=== PATIENT | male | born 1940 | race Caucasian/White ===

== ENCOUNTER → 2017-10-31 | Outpatient (CLI) | payer MEDICARE ==
[~2017-10-31] MED LIST: ALLO100 PO; Cipro500 MG PO; Flagyl500 MG PO; LEVSOD100 PO; LISI5 PO; METF500C PO; Metformin HCl1000 MG PO; Oxycodone-Apap1 EAC3 PO; Paxil40 MG; Percocet 5-3251 EACH PO; SIMV40 PO; TAMS.4ER PO; Zofran Odt4 MG SL
[2017-10-31 14:53] LABS: BASOPHILS ABSOLUTE AUTO 0.02 K/mm3 (0.00-0.23); BASOPHILS PERCENT AUTO 0 % (0-2); EOSINOPHILS PERCENT AUTO 2 % (0-6); Hematocrit 43.1 % (37.0-53.0); Hemoglobin 15.1 g/dL (13.5-17.5); IMMATURE GRAN ABSOLUTE AUTO 0.02 K/mm3 (0.00-0.10); IMMATURE GRAN PERCENT AUTO 0 % (0-1); LYMPHOCYTES ABSOLUTE AUTO 1.98 K/mm3 (0.84-5.20); LYMPHOCYTES PERCENT AUTO 33 % (21-46); MONOCYTES ABSOLUTE AUTO 0.43 K/mm3 (0.16-1.47); MONOCYTES PERCENT AUTO 7 % (4-13); Mean Corpuscular HGB 33.5 pg (26.0-34.0); Mean Corpuscular Volume 96 fL (80-100); Mean Platelet Volume 9.5 fL (9.1-12.4); NEUTROPHILS ABSOLUTE AUTO 3.55 K/mm3 (1.96-9.15); NEUTROPHILS PERCENT AUTO 58 % (41-73); Platelet Count 325 K/mm3 (150-400); RDW Coefficient Variation 12.1 % (11.7-14.2); RDW Standard Deviation 42.1 fL (35.1-46.3); Red Blood Cell Count 4.51 M/mm3 (4.30-5.90)
[2017-10-31 14:58] LABS: Bun/Creatinine Ratio 16.8 (12.0-20.0); Calcium, Blood 9.5 mg/dL (8.5-10.1); Creatinine, Blood 1.43 mg/dL (0.60-1.20); Potassium, Blood 4.2 mmol/L (3.5-5.5)
== END ==
LOC: LAB SHORT 14:45 → LAB EV 14:45
PROVIDERS: Family Medicine
DX: J18.0 Bronchopneumonia, unspecified organism (principal)
CPT/HCPCS: 80048; 83880; 85025

== ENCOUNTER → 2018-06-04 | Outpatient (CLI) | payer MEDICARE, BC ==
[2018-06-04 15:45] LABS: BASOPHILS ABSOLUTE AUTO 0.07 K/mm3 (0.00-0.23); BASOPHILS PERCENT AUTO 1 % (0-2); EOSINOPHILS ABSOLUTE AUTO 0.29 K/mm3 (0.00-0.68); EOSINOPHILS PERCENT AUTO 3 % (0-6); Hemoglobin 12.7 g/dL (13.5-17.5); IMMATURE GRAN ABSOLUTE AUTO 0.03 K/mm3 (0.00-0.10); IMMATURE GRAN PERCENT AUTO 0 % (0-1); LYMPHOCYTES ABSOLUTE AUTO 1.83 K/mm3 (0.84-5.20); LYMPHOCYTES PERCENT AUTO 18 % (21-46); MONOCYTES ABSOLUTE AUTO 0.58 K/mm3 (0.16-1.47); MONOCYTES PERCENT AUTO 6 % (4-13); Mean Corpuscular HGB 34.3 pg (26.0-34.0); Mean Corpuscular HGB Conc 34.3 g/dL (31.5-36.5); Mean Corpuscular Volume 100 fL (80-100); Mean Platelet Volume 9.6 fL (9.1-12.4); NEUTROPHILS ABSOLUTE AUTO 7.31 K/mm3 (1.96-9.15); NEUTROPHILS PERCENT AUTO 72 % (41-73); Platelet Count 260 K/mm3 (150-400); RDW Coefficient Variation 13.1 % (11.7-14.2); RDW Standard Deviation 48.1 fL (35.1-46.3); White Blood Cell Count 10.11 K/mm3 (4.00-11.30)
[2018-06-04 15:53] LABS: Bun/Creatinine Ratio 22.3 (12.0-20.0); Calcium, Blood 9.3 mg/dL (8.5-10.1); Creatinine, Blood 1.48 mg/dL (0.60-1.20); Potassium, Blood 4.3 mmol/L (3.5-5.5)
== END ==
LOC: LAB SHORT 15:42 → LAB EV 15:42
PROVIDERS: Family Medicine
DX: R31.9 Hematuria, unspecified (principal)
CPT/HCPCS: 80048; 85025

== ENCOUNTER 2018-07-30 10:19 | Emergency (ER) | payer MEDICARE, BC ==
[~2018-07-30] VITALS: Ht 182.9 cm; Wt 95.2 kg
[2018-07-30] MEDS ORDERED: ALLO100 PO (11:10)
[2018-07-30] MEDS ORDERED: METF500C PO (11:10)
[2018-07-30] MEDS ORDERED: LISI5 PO (11:10)
[2018-07-30] MEDS ORDERED: Oxycodone-Apap1 EAC3 PO (11:11)
[2018-07-30] MEDS ORDERED: SIMV40 PO (11:11)
[2018-07-30] MEDS ORDERED: TAMS.4ER PO (11:11)
[2018-07-30] MEDS ORDERED: LEVSOD100 PO (11:11)
[2018-07-30] MEDS ORDERED: Paxil40 MG (11:11)
[2018-07-30] MEDS ORDERED: Metformin HCl1000 MG PO (11:11)
[2018-07-30 11:15] LABS: BASOPHILS ABSOLUTE AUTO 0.06 K/mm3 (0.00-0.23); BASOPHILS PERCENT AUTO 1 % (0-2); EOSINOPHILS ABSOLUTE AUTO 0.32 K/mm3 (0.00-0.68); EOSINOPHILS PERCENT AUTO 4 % (0-6); Hematocrit 41.3 % (37.0-53.0); Hemoglobin 13.6 g/dL (13.5-17.5); IMMATURE GRAN ABSOLUTE AUTO 0.02 K/mm3 (0.00-0.10); IMMATURE GRAN PERCENT AUTO 0 % (0-1); LYMPHOCYTES ABSOLUTE AUTO 1.51 K/mm3 (0.84-5.20); LYMPHOCYTES PERCENT AUTO 18 % (21-46); MONOCYTES ABSOLUTE AUTO 0.56 K/mm3 (0.16-1.47); MONOCYTES PERCENT AUTO 7 % (4-13); Mean Corpuscular HGB 33.6 pg (26.0-34.0); Mean Corpuscular HGB Conc 32.9 g/dL (31.5-36.5); Mean Corpuscular Volume 102 fL (80-100); Mean Platelet Volume 9.2 fL (9.1-12.4); NEUTROPHILS ABSOLUTE AUTO 5.97 K/mm3 (1.96-9.15); NEUTROPHILS PERCENT AUTO 71 % (41-73); Platelet Count 320 K/mm3 (150-400); RDW Coefficient Variation 12.4 % (11.7-14.2); RDW Standard Deviation 46.8 fL (35.1-46.3); Red Blood Cell Count 4.05 M/mm3 (4.30-5.90); White Blood Cell Count 8.44 K/mm3 (4.00-11.30)
[2018-07-30 11:27] LABS: Alanine Aminotransfer (ALT/SGP 19 U/L (12-78); Albumin, Blood 3.9 g/dL (3.4-5.0); Albumin/Globulin Ratio 0.8 (0.8-1.8); Alk Phos 63 U/L (50-136); Anion Gap 7 mmol/L (6-16); Aspartate Aminotrans (AST/SGOT 17 U/L (12-37); Bilirubin, Total 0.6 mg/dL (0.1-1.0); Blood Urea Nitrogen 21 mg/dL (8-24); Bun/Creatinine Ratio 19.3 (12.0-20.0); CO2, Blood 27 mmol/L (21-32); Calcium, Blood 9.2 mg/dL (8.5-10.1); Chloride, Blood 102 mmol/L (98-108); Creatinine, Blood 1.09 mg/dL (0.60-1.20); Globulin, Blood 4.8 g/dL (2.2-4.0); Glomerular Filtration Rate >60 (60-); Glucose, Blood 180 mg/dL (70-99); Potassium, Blood 4.4 mmol/L (3.5-5.5); Sodium, Blood 136 mmol/L (136-145); Total Protein, Blood 8.7 g/dL (6.4-8.2)
[2018-07-30] MEDS ORDERED: Cipro500 MG PO (13:29)
[2018-07-30] MEDS ORDERED: Percocet 5-3251 EACH PO (13:29)
[2018-07-30] MEDS ORDERED: Zofran Odt4 MG SL (13:29)
[2018-07-30] MEDS ORDERED: Flagyl500 MG PO (13:29)
== END 2018-07-30 14:00 | disposition home or self-care (01) ==
LOC: ER 10:19
PROVIDERS: Emergency Medicine
DX: K57.32 Diverticulitis of large intestine without perforation or abscess without bleeding (principal); E11.9 Type 2 diabetes mellitus without complications; I10 Essential (primary) hypertension; Z88.0 Allergy status to penicillin; Z79.899 Other long term (current) drug therapy; Z79.84 Long term (current) use of oral hypoglycemic drugs
CPT/HCPCS: 36415; 74176; 80053; 83690; 85025; 96361; 96374; 96375; 99284-25; J2405; J3010; J7030

== ENCOUNTER 2018-12-11 06:16 | Day surgery (SDC) | payer MEDICARE, BC ==
[~2018-12-11] VITALS: Ht 182.9 cm; Wt 95.0 kg
[~2018-12-11 06:16] MED LIST changes: +ASPI81CH PO; +METO25ER PO; +Zithromax250 MG PO
--- NOTE | 2018-12-11 11:06 | NUR ---
PT DRESSED, DC'D BY WC WITH DRIVING PT HOME, R RADIAL DRESSING AND R WRIST SPLINT IN PLACE, NO BLEED, IV DC'D TIP INTACT
== END 2018-12-11 11:31 | disposition home or self-care (01) ==
LOC: MHTC 06:16
DX: R93.1 Abnormal findings on diagnostic imaging of heart and coronary circulation (principal); R06.02 Shortness of breath; Z88.0 Allergy status to penicillin; Z88.5 Allergy status to narcotic agent
CPT/HCPCS: 93458; 99152; 99153; C1769; C1894; J1644; J2250; J3010; J7030; Q9967

== ENCOUNTER → 2019-03-12 | Outpatient (CLI) | payer MEDICARE, BC ==
[2019-03-12 12:21] LABS: BASOPHILS ABSOLUTE AUTO 0.05 K/mm3 (0.00-0.23); BASOPHILS PERCENT AUTO 1 % (0-2); EOSINOPHILS ABSOLUTE AUTO 0.43 K/mm3 (0.00-0.68); EOSINOPHILS PERCENT AUTO 5 % (0-6); Hemoglobin 11.9 g/dL (13.5-17.5); IMMATURE GRAN ABSOLUTE AUTO 0.03 K/mm3 (0.00-0.10); IMMATURE GRAN PERCENT AUTO 0 % (0-1); LYMPHOCYTES ABSOLUTE AUTO 1.17 K/mm3 (0.84-5.20); LYMPHOCYTES PERCENT AUTO 14 % (21-46); MONOCYTES ABSOLUTE AUTO 0.58 K/mm3 (0.16-1.47); MONOCYTES PERCENT AUTO 7 % (4-13); Mean Corpuscular HGB 33.2 pg (26.0-34.0); Mean Corpuscular HGB Conc 33.1 g/dL (31.5-36.5); Mean Corpuscular Volume 101 fL (80-100); Mean Platelet Volume 9.7 fL (9.1-12.4); NEUTROPHILS ABSOLUTE AUTO 6.02 K/mm3 (1.96-9.15); NEUTROPHILS PERCENT AUTO 73 % (41-73); Platelet Count 281 K/mm3 (150-400); RDW Coefficient Variation 13.7 % (11.7-14.2); Red Blood Cell Count 3.58 M/mm3 (4.30-5.90); White Blood Cell Count 8.28 K/mm3 (4.00-11.30)
[2019-03-12 12:33] LABS: Anion Gap 11 mmol/L (6-16); Blood Urea Nitrogen 27 mg/dL (8-24); Bun/Creatinine Ratio 22.1 (12.0-20.0); CO2, Blood 26 mmol/L (21-32); Calcium, Blood 9.5 mg/dL (8.5-10.1); Chloride, Blood 100 mmol/L (98-108); Creatinine, Blood 1.22 mg/dL (0.60-1.20); Glomerular Filtration Rate 57 (60-); Glucose, Blood 206 mg/dL (70-99); Potassium, Blood 4.3 mmol/L (3.5-5.5); Sodium, Blood 137 mmol/L (136-145)
[2019-03-12 12:38] LABS: Troponin I <0.017 ng/mL (0.000-0.040)
== END | disposition home or self-care (01) ==
LOC: LAB SHORT 12:16 → LAB EV 12:16
PROVIDERS: Family Medicine
DX: R07.9 Chest pain, unspecified (principal)
CPT/HCPCS: 80048; 84484; 85025

== ENCOUNTER 2019-03-31 07:18 | Inpatient (IN) | payer MEDICARE, BC ==
[~2019-03-31] VITALS: Ht 182.9 cm; Wt 95.6 kg
[~2019-03-31 07:18] MED LIST changes: +METO25 PO; -METO25ER PO
[2019-03-31 08:22] LABS: BASOPHILS ABSOLUTE AUTO 0.05 K/mm3 (0.00-0.23); BASOPHILS PERCENT AUTO 1 % (0-2); EOSINOPHILS ABSOLUTE AUTO 0.02 K/mm3 (0.00-0.68); EOSINOPHILS PERCENT AUTO 0 % (0-6); Hematocrit 38.1 % (37.0-53.0); IMMATURE GRAN ABSOLUTE AUTO 0.03 K/mm3 (0.00-0.10); IMMATURE GRAN PERCENT AUTO 0 % (0-1); LYMPHOCYTES ABSOLUTE AUTO 0.64 K/mm3 (0.84-5.20); LYMPHOCYTES PERCENT AUTO 6 % (21-46); MONOCYTES ABSOLUTE AUTO 0.53 K/mm3 (0.16-1.47); MONOCYTES PERCENT AUTO 5 % (4-13); Mean Corpuscular HGB 33.2 pg (26.0-34.0); Mean Corpuscular HGB Conc 31.5 g/dL (31.5-36.5); Mean Corpuscular Volume 106 fL (80-100); Mean Platelet Volume 10.1 fL (9.1-12.4); NEUTROPHILS ABSOLUTE AUTO 9.45 K/mm3 (1.96-9.15); NEUTROPHILS PERCENT AUTO 88 % (41-73); Platelet Count 243 K/mm3 (150-400); RDW Standard Deviation 54.6 fL (35.1-46.3); Red Blood Cell Count 3.61 M/mm3 (4.30-5.90); White Blood Cell Count 10.72 K/mm3 (4.00-11.30)
[2019-03-31 08:45] LABS: Alanine Aminotransfer (ALT/SGP 16 U/L (12-78); Albumin, Blood 3.9 g/dL (3.4-5.0); Albumin/Globulin Ratio 0.9 (0.8-1.8); Alk Phos 66 U/L (50-136); Anion Gap 6 mmol/L (6-16); Aspartate Aminotrans (AST/SGOT 25 U/L (12-37); Bilirubin, Total 0.4 mg/dL (0.1-1.0); Blood Urea Nitrogen 33 mg/dL (8-24); Bun/Creatinine Ratio 34.4 (12.0-20.0); CO2, Blood 26 mmol/L (21-32); Calcium, Blood 9.6 mg/dL (8.5-10.1); Chloride, Blood 107 mmol/L (98-108); Creatinine, Blood 0.96 mg/dL (0.60-1.20); Globulin, Blood 4.3 g/dL (2.2-4.0); Glomerular Filtration Rate >60 (60-); Glucose, Blood 206 mg/dL (70-99); Potassium, Blood 4.6 mmol/L (3.5-5.5); Sodium, Blood 139 mmol/L (136-145); Total Protein, Blood 8.2 g/dL (6.4-8.2)
[2019-03-31] MEDS ORDERED: Paxil40 MG PO (09:25)
--- NOTE | 2019-03-31 12:00 | NUR ---
DR. GREEN ANS SERVICE CONSULTED. DR. ROSALES ANS SERVICE CONSULTED.
[2019-03-31] MEDS ORDERED: MELATONIN10 MG PO (12:32)
--- NOTE | 2019-03-31 14:44 | NUR ---
SURGICAL CONSULT DR. GREEN CONSULTED ON PT. HE VERBALIZED THAT CARDIOLOGY NEEDS TO CONSULT ON PT BEFORE SURGICAL INTERVENTION. HE SAID HE COULD POSSIBLY HAVE A DRAIN PLACED TOMORROW VIA RADIOLOGY. NPO AT MIDNIGHT FOR THAT POSSIBILITY.
--- NOTE | 2019-03-31 16:01 | NUR ---
TREATMENT PLAN DR. GREEN CALLED THIS RN AND REPORTS PT IS GOING TO HAVE A HIDA SCAN IN THE MORNING AND TO HOLD ALL BLOOD THINNERS AT THIS TIME. PT TO BE NPO AT MIDNIGHT AND TO HOLD ALL NARCOTICS 6 HOURS BEFORE HIDA SCAN. NO TIME OF SCAN SCHEDULED OF YET.
--- NOTE | 2019-03-31 16:57 | NUR ---
SHIFT SUMMARY NO ACUTE CHANGES THIS SHIFT. VSS. PT CLEAR LIQ DIET UNTIL NPO AT MIDNIGHT. PT EXPECTED TO HAVE A HIDA SCAN TOMORROW TO DETERMINE NEXT STEP IN TREATMENT PLAN. MEDICATING WITH 0.5MG IV DILAUDID FOR PAIN PRN. DENIES N/V. INDEP IN ROOM. IVF INFUSING. TELE IN PLACE. CALL LIGHT WITHIN REACH. AT BEDSIDE FOR SUPPORT.
[2019-04-01 05:10] LABS: BASOPHILS ABSOLUTE AUTO 0.02 K/mm3 (0.00-0.23); BASOPHILS PERCENT AUTO 0 % (0-2); EOSINOPHILS PERCENT AUTO 0 % (0-6); Hematocrit 40.1 % (37.0-53.0); Hemoglobin 12.9 g/dL (13.5-17.5); IMMATURE GRAN ABSOLUTE AUTO 0.11 K/mm3 (0.00-0.10); IMMATURE GRAN PERCENT AUTO 1 % (0-1); LYMPHOCYTES ABSOLUTE AUTO 0.79 K/mm3 (0.84-5.20); LYMPHOCYTES PERCENT AUTO 5 % (21-46); MONOCYTES ABSOLUTE AUTO 1.13 K/mm3 (0.16-1.47); MONOCYTES PERCENT AUTO 7 % (4-13); Mean Corpuscular HGB 32.7 pg (26.0-34.0); Mean Corpuscular HGB Conc 32.2 g/dL (31.5-36.5); Mean Platelet Volume 10.1 fL (9.1-12.4); NEUTROPHILS ABSOLUTE AUTO 14.26 K/mm3 (1.96-9.15); NEUTROPHILS PERCENT AUTO 88 % (41-73); Platelet Count 250 K/mm3 (150-400); RDW Coefficient Variation 14.3 % (11.7-14.2); RDW Standard Deviation 53.1 fL (35.1-46.3); Red Blood Cell Count 3.95 M/mm3 (4.30-5.90); White Blood Cell Count 16.31 K/mm3 (4.00-11.30)
[2019-04-01 05:11] LABS: Mean Corpuscular Volume 102 fL (80-100)
[2019-04-01 05:36] LABS: Anion Gap 8 mmol/L (6-16); Blood Urea Nitrogen 25 mg/dL (8-24); Bun/Creatinine Ratio 26.8 (12.0-20.0); CO2, Blood 25 mmol/L (21-32); Calcium, Blood 8.7 mg/dL (8.5-10.1); Chloride, Blood 107 mmol/L (98-108); Creatinine, Blood 0.93 mg/dL (0.60-1.20); Glomerular Filtration Rate >60 (60-); Glucose, Blood 209 mg/dL (70-99); Potassium, Blood 4.1 mmol/L (3.5-5.5); Sodium, Blood 140 mmol/L (136-145)
--- NOTE | 2019-04-01 05:59 | NUR ---
SUMMARY: ADMIT DAY 2 CHOLECYSTITIS ON HOSPITALIST SERVICE WITH DR. GREEN FOLLOWING. VSS, AFEBRILE, PT PLACED ON 2L O2 VIA NC WHILE ASLEEP AFTER ANTI-EMETICS AND PRN PAIN MEDS. PT HAD LONG BOUT OF N/V WITH MINIMAL EMESIS NOT RESOLVED WITH IV ZOFRAN AND FINALLY RESOLVED WITH ONE TIME DOSE OF 6.25MG IV PHENERGAN. PT URINE DARK WITH MINIMAL OUTPUT. PT CBG AT HS RESULT 206 MG/DL AND RECEIVED 2 UNITS NOVOLOG. PT PAIN WELL CONTROLLED WITH 0.5MG IV DILAUDID X2 IN THE NOC. PT NPO, HOLD LOVENOX IN ANTICIPATION OF HYDASCAN LATER THIS DAY.
--- NOTE | 2019-04-01 10:27 | NUR ---
SPOKE WITH [facility] IN RADIOLOGY, PLAN TO HAVE HYDA SCAN AT ABOUT 0100, CLARIFIED WITH DR. GREEN. HOLDING PAIN MEDICATION AT THIS TIME UNTIL PROCEDURE IS FINISHED. WILL CTM PT STATUS.
--- NOTE | 2019-04-01 12:25 | NUR ---
pt to imaging via [facility] for hida scan.
--- NOTE | 2019-04-01 15:09 | NUR ---
PT BACK FROM HYDA SCAN AT ABOUT 1430. VSS, PT A/O, AT BEDSIDE
--- NOTE | 2019-04-01 19:48 | NUR ---
SUMMARY: SEE PREVIOUS NOTE. PT DID WELL OVERALL TODAY. MEDICATED FOR PAIN/NAUSEA PRN, SEE EMAR. NO EMESIS. PT CONTINUES TO BE NPO, RECEIVING ANTIBIOTICS AND FLUIDS. VSS, A/O. AWAITING RESULT OF HIDA SCAN. NO ACUTE SAFETY CONCERNS AT THIS TIME
--- NOTE | 2019-04-02 07:14 | NUR ---
SUMMARY PT REMAINS NPO. MEDICTED IV FOR PAIN DURING NOIGHT WITH REPORTED GOOD EFFECT. PT VOIDED SMALL AMNT DURING NIGHTS SO I DID BLADDER SCAN OF 258. DISCUSSED WITH PT NEED TO ATTEMPT VOID EVEN WITHOUT URGE TO ASSIST EMPTYING BLADDER. PT REPORTS HX DIFFICULTY VOIDING POST HEART SURGERY AND HAS TAKEN FLOMAX IN PAST.WILL NOTIFY DAY RN.
[2019-04-02 08:56] LABS: BASOPHILS ABSOLUTE AUTO 0.03 K/mm3 (0.00-0.23); BASOPHILS PERCENT AUTO 0 % (0-2); EOSINOPHILS ABSOLUTE AUTO 0.02 K/mm3 (0.00-0.68); EOSINOPHILS PERCENT AUTO 0 % (0-6); Hematocrit 37.9 % (37.0-53.0); IMMATURE GRAN PERCENT AUTO 1 % (0-1); LYMPHOCYTES ABSOLUTE AUTO 0.82 K/mm3 (0.84-5.20); LYMPHOCYTES PERCENT AUTO 5 % (21-46); MONOCYTES ABSOLUTE AUTO 1.02 K/mm3 (0.16-1.47); MONOCYTES PERCENT AUTO 6 % (4-13); Mean Corpuscular HGB 32.7 pg (26.0-34.0); Mean Corpuscular HGB Conc 31.7 g/dL (31.5-36.5); Mean Corpuscular Volume 103 fL (80-100); Mean Platelet Volume 9.8 fL (9.1-12.4); NEUTROPHILS ABSOLUTE AUTO 13.84 K/mm3 (1.96-9.15); NEUTROPHILS PERCENT AUTO 88 % (41-73); Platelet Count 228 K/mm3 (150-400); RDW Coefficient Variation 14.3 % (11.7-14.2); RDW Standard Deviation 54.8 fL (35.1-46.3); Red Blood Cell Count 3.67 M/mm3 (4.30-5.90); White Blood Cell Count 15.83 K/mm3 (4.00-11.30)
[2019-04-02 09:20] LABS: Alanine Aminotransfer (ALT/SGP 15 U/L (12-78); Albumin, Blood 2.7 g/dL (3.4-5.0); Albumin/Globulin Ratio 0.6 (0.8-1.8); Alk Phos 69 U/L (50-136); Anion Gap 7 mmol/L (6-16); Aspartate Aminotrans (AST/SGOT 17 U/L (12-37); Bilirubin, Total 0.7 mg/dL (0.1-1.0); Blood Urea Nitrogen 28 mg/dL (8-24); Bun/Creatinine Ratio 28.9 (12.0-20.0); CO2, Blood 27 mmol/L (21-32); Chloride, Blood 107 mmol/L (98-108); Creatinine, Blood 0.97 mg/dL (0.60-1.20); Globulin, Blood 4.3 g/dL (2.2-4.0); Glomerular Filtration Rate >60 (60-); Glucose, Blood 153 mg/dL (70-99); Potassium, Blood 4.1 mmol/L (3.5-5.5); Sodium, Blood 141 mmol/L (136-145)
--- NOTE | 2019-04-02 13:13 | NUR ---
PATIENT TO [facility] FOR BILIARY DRAIN AT THIS TIME.
--- NOTE | 2019-04-02 14:45 | NUR ---
PATIENT RETURNED FROM HEART CENTER AT THIS TIME. GROGGY, DENIES PAIN, NAUSEA. VSS. O2 @ 4L PER NC TO KEEP SATS > 90%. BILIARY TUBE R ABD DRAINING GREEN/BROWN LIQUID. SITE WITH CLEAR OCCLUSIVE DRESSING, INTACT. CONT TO MONITOR.
--- NOTE | 2019-04-02 17:57 | NUR ---
SHIFT SUMMARY PATIENT HAS BECOME MORE ALERT SINCE RETURNED FROM DRAIN PLACEMENT. STATES PAIN IS MUCH IMPROVED. BILIARY DRAIN 80 ML OUTPUT. VSS. DENIES NAUSEA. NO C/O AT THIS TIME.
--- NOTE | 2019-04-03 06:00 | NUR ---
SHIFT SUMMARY LYING IN SEMI FOWLERFS WITH EYES CLOSED. RESTED WELL, PAIN MANAGED. 60ML EMPTIED FROM BILIARY DRAIN. HAD 2 BM'S THROUGHOUT SHIFT. DENIES FURTHER NEEDS OR WANTS AT THIS TIME. SAFETY MEASURES IN PLACE. WILL GIVE HAND OFF TO ONCOMING SHIFT USING SBAR.
[2019-04-03 06:47] LABS: BASOPHILS ABSOLUTE AUTO 0.03 K/mm3 (0.00-0.23); BASOPHILS PERCENT AUTO 0 % (0-2); EOSINOPHILS ABSOLUTE AUTO 0.24 K/mm3 (0.00-0.68); EOSINOPHILS PERCENT AUTO 3 % (0-6); Hematocrit 31.7 % (37.0-53.0); IMMATURE GRAN ABSOLUTE AUTO 0.04 K/mm3 (0.00-0.10); IMMATURE GRAN PERCENT AUTO 1 % (0-1); LYMPHOCYTES ABSOLUTE AUTO 0.82 K/mm3 (0.84-5.20); LYMPHOCYTES PERCENT AUTO 10 % (21-46); MONOCYTES ABSOLUTE AUTO 0.62 K/mm3 (0.16-1.47); MONOCYTES PERCENT AUTO 7 % (4-13); Mean Corpuscular HGB 33.1 pg (26.0-34.0); Mean Corpuscular HGB Conc 31.5 g/dL (31.5-36.5); Mean Corpuscular Volume 105 fL (80-100); Mean Platelet Volume 9.5 fL (9.1-12.4); NEUTROPHILS ABSOLUTE AUTO 6.68 K/mm3 (1.96-9.15); NEUTROPHILS PERCENT AUTO 79 % (41-73); Platelet Count 212 K/mm3 (150-400); RDW Standard Deviation 54.9 fL (35.1-46.3); Red Blood Cell Count 3.02 M/mm3 (4.30-5.90); White Blood Cell Count 8.43 K/mm3 (4.00-11.30)
[2019-04-03 07:10] LABS: Alanine Aminotransfer (ALT/SGP 16 U/L (12-78); Albumin, Blood 2.3 g/dL (3.4-5.0); Albumin/Globulin Ratio 0.6 (0.8-1.8); Alk Phos 63 U/L (50-136); Anion Gap 6 mmol/L (6-16); Aspartate Aminotrans (AST/SGOT 21 U/L (12-37); Bilirubin, Total 0.6 mg/dL (0.1-1.0); Blood Urea Nitrogen 26 mg/dL (8-24); Bun/Creatinine Ratio 27.1 (12.0-20.0); CO2, Blood 28 mmol/L (21-32); Calcium, Blood 8.3 mg/dL (8.5-10.1); Chloride, Blood 107 mmol/L (98-108); Creatinine, Blood 0.96 mg/dL (0.60-1.20); Glomerular Filtration Rate >60 (60-); Glucose, Blood 119 mg/dL (70-99); Potassium, Blood 3.7 mmol/L (3.5-5.5); Sodium, Blood 141 mmol/L (136-145); Total Protein, Blood 6.3 g/dL (6.4-8.2)
[2019-04-03] MEDS ORDERED: CIPR500 PO (16:34)
[2019-04-03] MEDS ORDERED: METR500 PO (16:35)
--- NOTE | 2019-04-03 17:17 | NUR ---
DISCHARGE PT PROVIDED WITH WRITTEN AND VERBAL DISCHARGE INSTRUCTIONS. DEMONSTRATED HOW TO EMPTY BILIARY DRAIN FOR BOTH PT AND SPOUSE. PRESCRIPTIONS CALLED TO [facility]. PT ASSISTED OUT IN W/C AT APPROXIMATELY 1715.
[2019-06-09] MEDS ORDERED: OXYC5 PO (11:44)
[2019-06-09] MEDS ORDERED: Advil200 M1 PO (11:44)
[2019-06-09] MEDS ORDERED: [UNRECOGNIZED DRUG - OTHER] PO (11:45)
== END 2019-04-03 17:15 | disposition home or self-care (01) | DRG 445 ==
LOC: ER 07:18 → SURS 07:19
PROVIDERS: Emergency Medicine; Family Medicine; ADMIT Internal Medicine
PROC: 0F9430Z Drainage of Gallbladder with Drainage Device, Percutaneous Approach (ICD-10-PCS; principal; 2019-04-02)
DX: K81.0 Acute cholecystitis (principal); J98.11 Atelectasis; E03.9 Hypothyroidism, unspecified; E11.9 Type 2 diabetes mellitus without complications; E78.5 Hyperlipidemia, unspecified; F32.9 Major depressive disorder, single episode, unspecified; I10 Essential (primary) hypertension; I25.10 Atherosclerotic heart disease of native coronary artery without angina pectoris; Z95.1 Presence of aortocoronary bypass graft; Z87.891 Personal history of nicotine dependence
CPT/HCPCS: 36415; 47532; 71046; 76705; 78227; 80048; 80053; 82947; 83690; 85025; 96361; 96365; 96375; 99152; 99153; 99285-25; A9270; A9537; C1769; C1894; C9113; J0692; J1170; J1650; J2250; J2405; J2550; J3010; J7030; J7040; J7120; Q9967

== ENCOUNTER 2019-04-20 12:59 | Emergency (ER) | payer MEDICARE, BC ==
[~2019-04-20] VITALS: Ht 182.9 cm; Wt 88.9 kg
[~2019-04-20 12:59] MED LIST changes: +CIPR500 PO; +MELATONIN10 MG PO; +METR500 PO; +Paxil40 MG PO
[2019-04-20 13:54] LABS: BASOPHILS ABSOLUTE AUTO 0.06 K/mm3 (0.00-0.23); BASOPHILS PERCENT AUTO 1 % (0-2); EOSINOPHILS ABSOLUTE AUTO 0.25 K/mm3 (0.00-0.68); EOSINOPHILS PERCENT AUTO 4 % (0-6); Hematocrit 42.2 % (37.0-53.0); Hemoglobin 13.7 g/dL (13.5-17.5); IMMATURE GRAN ABSOLUTE AUTO 0.02 K/mm3 (0.00-0.10); IMMATURE GRAN PERCENT AUTO 0 % (0-1); LYMPHOCYTES ABSOLUTE AUTO 1.41 K/mm3 (0.84-5.20); LYMPHOCYTES PERCENT AUTO 21 % (21-46); MONOCYTES ABSOLUTE AUTO 0.51 K/mm3 (0.16-1.47); MONOCYTES PERCENT AUTO 8 % (4-13); Mean Corpuscular HGB 32.3 pg (26.0-34.0); Mean Corpuscular HGB Conc 32.5 g/dL (31.5-36.5); Mean Corpuscular Volume 100 fL (80-100); Mean Platelet Volume 8.9 fL (9.1-12.4); NEUTROPHILS ABSOLUTE AUTO 4.49 K/mm3 (1.96-9.15); NEUTROPHILS PERCENT AUTO 67 % (41-73); Platelet Count 452 K/mm3 (150-400); RDW Coefficient Variation 13.2 % (11.7-14.2); RDW Standard Deviation 48.8 fL (35.1-46.3); Red Blood Cell Count 4.24 M/mm3 (4.30-5.90); White Blood Cell Count 6.74 K/mm3 (4.00-11.30)
[2019-04-20 14:27] LABS: Alanine Aminotransfer (ALT/SGP 14 U/L (12-78); Albumin, Blood 3.8 g/dL (3.4-5.0); Albumin/Globulin Ratio 0.7 (0.8-1.8); Alk Phos 87 U/L (50-136); Anion Gap 8 mmol/L (6-16); Aspartate Aminotrans (AST/SGOT 17 U/L (12-37); Bilirubin, Total 0.4 mg/dL (0.1-1.0); Blood Urea Nitrogen 22 mg/dL (8-24); Bun/Creatinine Ratio 23.4 (12.0-20.0); CO2, Blood 28 mmol/L (21-32); Calcium, Blood 10.1 mg/dL (8.5-10.1); Chloride, Blood 99 mmol/L (98-108); Creatinine, Blood 0.94 mg/dL (0.60-1.20); Globulin, Blood 5.8 g/dL (2.2-4.0); Glomerular Filtration Rate >60 (60-); Glucose, Blood 130 mg/dL (70-99); Potassium, Blood 4.1 mmol/L (3.5-5.5); Sodium, Blood 135 mmol/L (136-145); Total Protein, Blood 9.6 g/dL (6.4-8.2); Troponin I <0.015 ng/mL (0.000-0.040)
[2019-06-09] MEDS ORDERED: Advil200 M1 PO (11:44)
[2019-06-09] MEDS ORDERED: OXYC5 PO (11:44)
[2019-06-09] MEDS ORDERED: [UNRECOGNIZED DRUG - OTHER] PO (11:45)
== END 2019-04-20 16:40 | disposition home or self-care (01) ==
LOC: ER 12:59
PROVIDERS: Emergency Medicine
DX: R63.0 Anorexia (principal); I10 Essential (primary) hypertension; E78.5 Hyperlipidemia, unspecified; E11.9 Type 2 diabetes mellitus without complications; E03.9 Hypothyroidism, unspecified; Z87.891 Personal history of nicotine dependence
CPT/HCPCS: 36415; 71046; 80053; 83690; 84484; 85025; 93005; 93010; 99285-25

== ENCOUNTER 2019-05-04 11:08 | Emergency (ER) | payer MEDICARE ==
[~2019-05-04] VITALS: Ht 182.9 cm; Wt 90.7 kg
[2019-06-09] MEDS ORDERED: OXYC5 PO (11:44)
[2019-06-09] MEDS ORDERED: Advil200 M1 PO (11:44)
[2019-06-09] MEDS ORDERED: [UNRECOGNIZED DRUG - OTHER] PO (11:45)
== END 2019-05-04 11:54 | disposition home or self-care (01) ==
LOC: ER 11:08
DX: Z48.01 Encounter for change or removal of surgical wound dressing (principal); Z88.0 Allergy status to penicillin; Z88.5 Allergy status to narcotic agent; Z79.899 Other long term (current) drug therapy; Z79.84 Long term (current) use of oral hypoglycemic drugs; I10 Essential (primary) hypertension; E78.5 Hyperlipidemia, unspecified; E11.9 Type 2 diabetes mellitus without complications; E03.9 Hypothyroidism, unspecified
CPT/HCPCS: 99281

== ENCOUNTER 2019-05-22 10:37 | Emergency (ER) | payer MEDICARE ==
[~2019-05-22] VITALS: Ht 182.9 cm; Wt 88.5 kg
[2019-05-22 13:38] LABS: BASOPHILS ABSOLUTE AUTO 0.04 K/mm3 (0.00-0.23); BASOPHILS PERCENT AUTO 1 % (0-2); EOSINOPHILS ABSOLUTE AUTO 0.35 K/mm3 (0.00-0.68); EOSINOPHILS PERCENT AUTO 5 % (0-6); Hematocrit 36.2 % (37.0-53.0); Hemoglobin 11.5 g/dL (13.5-17.5); IMMATURE GRAN ABSOLUTE AUTO 0.02 K/mm3 (0.00-0.10); IMMATURE GRAN PERCENT AUTO 0 % (0-1); LYMPHOCYTES ABSOLUTE AUTO 1.29 K/mm3 (0.84-5.20); LYMPHOCYTES PERCENT AUTO 16 % (21-46); MONOCYTES ABSOLUTE AUTO 0.68 K/mm3 (0.16-1.47); MONOCYTES PERCENT AUTO 9 % (4-13); Mean Corpuscular HGB 31.7 pg (26.0-34.0); Mean Corpuscular HGB Conc 31.8 g/dL (31.5-36.5); Mean Corpuscular Volume 100 fL (80-100); Mean Platelet Volume 8.7 fL (9.1-12.4); NEUTROPHILS ABSOLUTE AUTO 5.47 K/mm3 (1.96-9.15); NEUTROPHILS PERCENT AUTO 70 % (41-73); Platelet Count 318 K/mm3 (150-400); RDW Coefficient Variation 13.8 % (11.7-14.2); RDW Standard Deviation 50.2 fL (35.1-46.3); Red Blood Cell Count 3.63 M/mm3 (4.30-5.90); White Blood Cell Count 7.85 K/mm3 (4.00-11.30)
[2019-05-22 14:04] LABS: Alanine Aminotransfer (ALT/SGP 14 U/L (12-78); Albumin, Blood 3.5 g/dL (3.4-5.0); Albumin/Globulin Ratio 0.7 (0.8-1.8); Alk Phos 101 U/L (50-136); Anion Gap 5 mmol/L (6-16); Aspartate Aminotrans (AST/SGOT 15 U/L (12-37); Bilirubin, Total 0.3 mg/dL (0.1-1.0); Blood Urea Nitrogen 31 mg/dL (8-24); Bun/Creatinine Ratio 29.5 (12.0-20.0); CO2, Blood 29 mmol/L (21-32); Chloride, Blood 102 mmol/L (98-108); Creatinine, Blood 1.05 mg/dL (0.60-1.20); Globulin, Blood 5.1 g/dL (2.2-4.0); Glomerular Filtration Rate >60 (60-); Glucose, Blood 120 mg/dL (70-99); Potassium, Blood 4.2 mmol/L (3.5-5.5); Sodium, Blood 136 mmol/L (136-145); Total Protein, Blood 8.6 g/dL (6.4-8.2)
[2019-05-22] MEDS ORDERED: Percocet 5-3251 EACH PO (14:48)
[2019-06-09] MEDS ORDERED: Advil200 M1 PO (11:44)
[2019-06-09] MEDS ORDERED: OXYC5 PO (11:44)
[2019-06-09] MEDS ORDERED: [UNRECOGNIZED DRUG - OTHER] PO (11:45)
== END 2019-05-22 15:14 | disposition home or self-care (01) ==
LOC: ER 10:37
PROVIDERS: Emergency Medicine
DX: R10.11 Right upper quadrant pain (principal); R79.89 Other specified abnormal findings of blood chemistry; I25.10 Atherosclerotic heart disease of native coronary artery without angina pectoris; I10 Essential (primary) hypertension; E78.5 Hyperlipidemia, unspecified; E11.9 Type 2 diabetes mellitus without complications; E03.9 Hypothyroidism, unspecified; Z95.1 Presence of aortocoronary bypass graft; Z88.0 Allergy status to penicillin; Z88.5 Allergy status to narcotic agent; Z79.899 Other long term (current) drug therapy; Z79.84 Long term (current) use of oral hypoglycemic drugs; Z87.891 Personal history of nicotine dependence; Z90.49 Acquired absence of other specified parts of digestive tract
CPT/HCPCS: 36415; 76705; 80053; 83690; 85025; 96361; 96374; 96375; 99284-25; J1170; J2405; J7120

== ENCOUNTER 2019-05-26 09:34 | Day surgery (SDC) | payer MEDICARE ==
[~2019-05-26] VITALS: Ht 182.9 cm; Wt 88.6 kg
[2019-05-26] MEDS ORDERED: LISI5 PO (09:54)
[2019-05-26] MEDS ORDERED: CHOL10002 PO (09:56)
[2019-05-26] MEDS ORDERED: ALLERGY RELIEF1 EAC1 PO (09:56)
--- NOTE | 2019-05-26 13:45 | NUR ---
PT AND VERBALIZED UNDERSTANDING OF WRITTEN AND VERBAL D/C INST. IV REMOVED. PT TAKEN OUT OF THE HRT CENTER VIA W/C.
[2019-06-09] MEDS ORDERED: Advil200 M1 PO (11:44)
[2019-06-09] MEDS ORDERED: OXYC5 PO (11:44)
[2019-06-09] MEDS ORDERED: [UNRECOGNIZED DRUG - OTHER] PO (11:45)
== END 2019-05-26 14:10 | disposition home or self-care (01) ==
LOC: ORSCMMR 09:34 → MHTC 09:34 → ORSCMMR 09:36 → MHTC 14:10
DX: T85.598A Other mechanical complication of other gastrointestinal prosthetic devices, implants and grafts, initial encounter (principal); I10 Essential (primary) hypertension; E11.9 Type 2 diabetes mellitus without complications; F32.9 Major depressive disorder, single episode, unspecified; E78.5 Hyperlipidemia, unspecified; E03.9 Hypothyroidism, unspecified; Z87.891 Personal history of nicotine dependence; Z88.0 Allergy status to penicillin; Z88.5 Allergy status to narcotic agent; Z79.899 Other long term (current) drug therapy; Z79.84 Long term (current) use of oral hypoglycemic drugs; Z79.82 Long term (current) use of aspirin; Z90.49 Acquired absence of other specified parts of digestive tract
CPT/HCPCS: 47536; 82947; 99152; 99153; C1729; C1769; J2250; J3010; J7030; Q9967

== ENCOUNTER 2019-06-11 05:51 | Inpatient (IN) | payer MEDICARE ==
[~2019-06-11] VITALS: Ht 182.9 cm; Wt 85.6 kg
[~2019-06-11 05:51] MED LIST changes: +ALLERGY RELIEF1 EAC1 PO; +Advil200 M1 PO; +CHOL10002 PO; +OXYC5 PO; +[UNRECOGNIZED DRUG - OTHER] PO
--- NOTE | 2019-06-11 06:53 | NUR ---
Ambulatory in Day Surgery History, Chart, Medications and Allergies reviewed before start of procedure. Lungs clear T/O to Auscultation. Patient confirms NPO status and agrees with scheduled surgery. Pre-Op teaching done. Pt verbalizes understanding. Patient States Post-Procedure ride home has been arranged.
--- NOTE | 2019-06-11 08:54 | NUR ---
06/11/19 0854 Soha Case CHOLECYSTOSTOMY TUBE REMOVED INTRAOPERATIVELY BY NICOLE ROCHA RN PER DR. GREEN
--- NOTE | 2019-06-11 17:00 | NUR ---
PT ARRIVED TO ROOM VIA STRETCHER, A/0 X 4, POST OP VS COMMENCED, STABLE. WITH PT. PT AND ORIENTED TO ROOM
--- NOTE | 2019-06-11 18:47 | NUR ---
post op vs continuing, stable. pt remains on 1.5 L NC, Spo2 >90%. glass catheter patent/draining clear yellow urine. ESTELLE drains x 2 draining serosanguinous drainage. pt a/0, pleasant/cooperative, calm/drowsy, awakens to verbal response. BP 90-105/45-55. aware. pt remains on IV fluids. received orders for restart home medications
--- NOTE | 2019-06-12 01:20 | NUR ---
SPOUSE TOOK PERSONAL BELONGINGS HOME. PT TAKEN BY STRETCHER VIA [facility] TO [facility] IN [place], ASSIGNED ROOM 18 ON UNIT 4A. REPORT GIVEN TO THAD MULTANI USING SBAR. NURSING OFFERED TO CALL SPOUSE TO LET HER KNOW THAT HE WAS BEING TRANSFERED, HE STATED THAT HE DIDN'T WANT HER TO BE BOTHERED. NURSING STATED THAT HE COULD ASK HIS NURSE AT [facility] TO CALL HIS SPOUSE, VERBALIZES UNDERSTANDING.
== END 2019-06-12 01:22 | disposition short-term general hospital (02) | DRG 416 ==
LOC: ORSCMMR 05:51 → ORD 07:30 → ORSCMMR 15:27 → SURS 15:27
PROVIDERS: ADMIT Surgery
PROC: 0FT40ZZ Resection of Gallbladder, Open Approach (ICD-10-PCS; principal; 2019-06-11 07:30)
PROC: 0FJ44ZZ Inspection of Gallbladder, Percutaneous Endoscopic Approach (ICD-10-PCS; 2019-06-11 07:30)
PROC: BF03YZZ Plain Radiography of Gallbladder and Bile Ducts using Other Contrast (ICD-10-PCS; 2019-06-11 07:30)
DX: K81.1 Chronic cholecystitis (principal); I10 Essential (primary) hypertension; E78.5 Hyperlipidemia, unspecified; E03.9 Hypothyroidism, unspecified; E11.9 Type 2 diabetes mellitus without complications; M10.9 Gout, unspecified; Z88.5 Allergy status to narcotic agent; Z88.0 Allergy status to penicillin; Z79.84 Long term (current) use of oral hypoglycemic drugs; Z79.82 Long term (current) use of aspirin; Z79.899 Other long term (current) drug therapy; Z87.891 Personal history of nicotine dependence; Z95.1 Presence of aortocoronary bypass graft; Z53.31 Laparoscopic surgical procedure converted to open procedure
CPT/HCPCS: 74300; 82947; 88304; A9270-GY; C1729; C1894; J0744; J1100; J1170; J2250; J2370; J2405; J2704; J2710; J3010; J7030; J7120

== ENCOUNTER 2019-07-18 15:01 | Emergency (ER) | payer MEDICARE ==
[~2019-07-18] VITALS: Ht 182.9 cm; Wt 78.0 kg
[2019-07-18 15:33] LABS: BASOPHILS ABSOLUTE AUTO 0.06 K/mm3 (0.00-0.23); BASOPHILS PERCENT AUTO 1 % (0-2); EOSINOPHILS ABSOLUTE AUTO 0.24 K/mm3 (0.00-0.68); EOSINOPHILS PERCENT AUTO 4 % (0-6); Hematocrit 37.5 % (37.0-53.0); Hemoglobin 11.9 g/dL (13.5-17.5); IMMATURE GRAN ABSOLUTE AUTO 0.01 K/mm3 (0.00-0.10); IMMATURE GRAN PERCENT AUTO 0 % (0-1); LYMPHOCYTES ABSOLUTE AUTO 1.73 K/mm3 (0.84-5.20); LYMPHOCYTES PERCENT AUTO 27 % (21-46); MONOCYTES ABSOLUTE AUTO 0.52 K/mm3 (0.16-1.47); MONOCYTES PERCENT AUTO 8 % (4-13); Mean Corpuscular HGB 31.6 pg (26.0-34.0); Mean Corpuscular HGB Conc 31.7 g/dL (31.5-36.5); Mean Corpuscular Volume 100 fL (80-100); Mean Platelet Volume 9.8 fL (9.1-12.4); NEUTROPHILS ABSOLUTE AUTO 3.94 K/mm3 (1.96-9.15); NEUTROPHILS PERCENT AUTO 61 % (41-73); Platelet Count 299 K/mm3 (150-400); RDW Coefficient Variation 14.6 % (11.7-14.2); RDW Standard Deviation 53.9 fL (35.1-46.3); Red Blood Cell Count 3.77 M/mm3 (4.30-5.90)
[2019-07-18] MEDS ORDERED: Xanax0.25 MG PO (15:36)
[2019-07-18] MEDS ORDERED: OMEPRAZOLE20 MG PO (15:36)
[2019-07-18 15:46] LABS: Alanine Aminotransfer (ALT/SGP 16 U/L (12-78); Albumin, Blood 3.7 g/dL (3.4-5.0); Albumin/Globulin Ratio 0.8 (0.8-1.8); Alk Phos 72 U/L (50-136); Anion Gap 7 mmol/L (6-16); Aspartate Aminotrans (AST/SGOT 29 U/L (12-37); Bilirubin, Total 0.5 mg/dL (0.1-1.0); Blood Urea Nitrogen 24 mg/dL (8-24); Bun/Creatinine Ratio 27.4 (12.0-20.0); CO2, Blood 26 mmol/L (21-32); Calcium, Blood 9.1 mg/dL (8.5-10.1); Chloride, Blood 99 mmol/L (98-108); Creatinine, Blood 0.88 mg/dL (0.60-1.20); Globulin, Blood 4.4 g/dL (2.2-4.0); Glomerular Filtration Rate >60 (60-); Glucose, Blood 113 mg/dL (70-99); Potassium, Blood 4.1 mmol/L (3.5-5.5); Sodium, Blood 132 mmol/L (136-145); Total Protein, Blood 8.1 g/dL (6.4-8.2)
[2019-07-18 16:33] LABS: Source, Urine Voided
[2019-07-18 16:37] LABS: Bilirubin, Urine Neg (Neg); Blood, Urine 1+ (Neg); Glucose Qualitative, Urine Neg (Neg); Ketones, Urine Neg (Neg); Leukocyte Esterase, Urine 3+ (Neg); Nitrite, Urine Pos (Neg); Protein, Urine 1+ (Neg); Specific Gravity, Urine 1.015 (1.003-1.022); Urobilinogen, Urine NORM (Normal)
[2019-07-18 16:56] LABS: Appearance, Urine Hazy (Clear); Color, Urine Yellow (P-Yellow)
[2019-07-18 17:04] LABS: Red Blood Cells, Urine Not Seen /hpf (0-2); White Blood Cells, Urine 25-50 /hpf (0-5)
[2019-07-18 17:05] LABS: Bacteria Many /hpf; Squamous Epithelial Cells Rare /hpf (Few)
[2019-07-18] MEDS ORDERED: Macrobid 100 M100 MG PO (17:53)
== END 2019-07-18 18:22 | disposition home or self-care (01) ==
LOC: ER 15:01
PROVIDERS: Emergency Medicine
DX: I95.1 Orthostatic hypotension (principal); R63.4 Abnormal weight loss; Z68.23 Body mass index [BMI] 23.0-23.9, adult; Z88.0 Allergy status to penicillin; Z88.5 Allergy status to narcotic agent; Z79.899 Other long term (current) drug therapy; Z79.82 Long term (current) use of aspirin; Z79.84 Long term (current) use of oral hypoglycemic drugs; I10 Essential (primary) hypertension; E78.5 Hyperlipidemia, unspecified; E11.9 Type 2 diabetes mellitus without complications; E03.9 Hypothyroidism, unspecified; Z87.891 Personal history of nicotine dependence
CPT/HCPCS: 36415; 80053; 81001; 84484; 85025; 87077; 87086; 87186; 93005; 93010; 96360; 96361; 99285-25; J7030

== ENCOUNTER 2019-07-21 13:30 | Inpatient (IN) | payer MEDICARE, BC ==
[~2019-07-21] VITALS: Ht 182.9 cm; Wt 77.5 kg
[~2019-07-21 13:30] MED LIST changes: +Macrobid 100 M100 MG PO; +OMEPRAZOLE20 MG PO; +Xanax0.25 MG PO
[2019-07-21 14:18] LABS: BASOPHILS ABSOLUTE AUTO 0.06 K/mm3 (0.00-0.23); BASOPHILS PERCENT AUTO 1 % (0-2); EOSINOPHILS ABSOLUTE AUTO 0.44 K/mm3 (0.00-0.68); EOSINOPHILS PERCENT AUTO 6 % (0-6); Hematocrit 37.1 % (37.0-53.0); Hemoglobin 12.1 g/dL (13.5-17.5); IMMATURE GRAN ABSOLUTE AUTO 0.02 K/mm3 (0.00-0.10); IMMATURE GRAN PERCENT AUTO 0 % (0-1); LYMPHOCYTES ABSOLUTE AUTO 1.31 K/mm3 (0.84-5.20); LYMPHOCYTES PERCENT AUTO 17 % (21-46); MONOCYTES ABSOLUTE AUTO 0.57 K/mm3 (0.16-1.47); MONOCYTES PERCENT AUTO 7 % (4-13); Mean Corpuscular HGB 31.6 pg (26.0-34.0); Mean Corpuscular HGB Conc 32.6 g/dL (31.5-36.5); Mean Platelet Volume 9.8 fL (9.1-12.4); NEUTROPHILS ABSOLUTE AUTO 5.29 K/mm3 (1.96-9.15); NEUTROPHILS PERCENT AUTO 69 % (41-73); Platelet Count 287 K/mm3 (150-400); RDW Coefficient Variation 14.6 % (11.7-14.2); RDW Standard Deviation 51.9 fL (35.1-46.3); Red Blood Cell Count 3.83 M/mm3 (4.30-5.90); White Blood Cell Count 7.69 K/mm3 (4.00-11.30)
[2019-07-21 14:19] LABS: Mean Corpuscular Volume 97 fL (80-100)
[2019-07-21 14:37] LABS: Source, Urine Clean Catch
[2019-07-21 14:43] LABS: Bilirubin, Urine Neg (Neg); Blood, Urine 5+ (Neg); Glucose Qualitative, Urine Neg (Neg); Ketones, Urine 1+ (Neg); Leukocyte Esterase, Urine 2+ (Neg); Nitrite, Urine Pos (Neg); Protein, Urine 2+ (Neg); Specific Gravity, Urine 1.015 (1.003-1.022); Urobilinogen, Urine NORM (Normal)
[2019-07-21 14:45] LABS: Alanine Aminotransfer (ALT/SGP 13 U/L (12-78); Albumin, Blood 3.9 g/dL (3.4-5.0); Albumin/Globulin Ratio 0.9 (0.8-1.8); Alk Phos 73 U/L (50-136); Anion Gap 7 mmol/L (6-16); Aspartate Aminotrans (AST/SGOT 17 U/L (12-37); Bilirubin, Total 0.4 mg/dL (0.1-1.0); Blood Urea Nitrogen 18 mg/dL (8-24); Bun/Creatinine Ratio 21.6 (12.0-20.0); CO2, Blood 26 mmol/L (21-32); Calcium, Blood 9.7 mg/dL (8.5-10.1); Chloride, Blood 100 mmol/L (98-108); Creatinine, Blood 0.83 mg/dL (0.60-1.20); Globulin, Blood 4.4 g/dL (2.2-4.0); Glomerular Filtration Rate >60 (60-); Glucose, Blood 149 mg/dL (70-99); Potassium, Blood 3.9 mmol/L (3.5-5.5); Sodium, Blood 133 mmol/L (136-145); Total Protein, Blood 8.3 g/dL (6.4-8.2)
[2019-07-21 14:52] LABS: Appearance, Urine Hazy (Clear); Color, Urine Yellow (P-Yellow)
[2019-07-21 14:53] LABS: Bacteria Mod /hpf; Red Blood Cells, Urine TNTC /hpf (0-2); Squamous Epithelial Cells Rare /hpf (Few)
[2019-07-21] MEDS ORDERED: Aspir 8181 MG PO (18:27)
[2019-07-21] MEDS ORDERED: VITAMIN D22000 UNIT PO (18:28)
[2019-07-21] MEDS ORDERED: MELATONIN5 M1 PO (18:30)
[2019-07-22 05:34] LABS: BASOPHILS ABSOLUTE AUTO 0.03 K/mm3 (0.00-0.23); BASOPHILS PERCENT AUTO 1 % (0-2); EOSINOPHILS ABSOLUTE AUTO 0.26 K/mm3 (0.00-0.68); EOSINOPHILS PERCENT AUTO 4 % (0-6); Hematocrit 34.8 % (37.0-53.0); Hemoglobin 11.1 g/dL (13.5-17.5); IMMATURE GRAN ABSOLUTE AUTO 0.02 K/mm3 (0.00-0.10); IMMATURE GRAN PERCENT AUTO 0 % (0-1); LYMPHOCYTES ABSOLUTE AUTO 1.01 K/mm3 (0.84-5.20); LYMPHOCYTES PERCENT AUTO 17 % (21-46); MONOCYTES ABSOLUTE AUTO 0.45 K/mm3 (0.16-1.47); MONOCYTES PERCENT AUTO 8 % (4-13); Mean Corpuscular HGB 31.6 pg (26.0-34.0); Mean Corpuscular HGB Conc 31.9 g/dL (31.5-36.5); Mean Corpuscular Volume 99 fL (80-100); Mean Platelet Volume 9.7 fL (9.1-12.4); NEUTROPHILS ABSOLUTE AUTO 4.13 K/mm3 (1.96-9.15); NEUTROPHILS PERCENT AUTO 70 % (41-73); Platelet Count 251 K/mm3 (150-400); RDW Coefficient Variation 14.6 % (11.7-14.2); RDW Standard Deviation 53.3 fL (35.1-46.3); Red Blood Cell Count 3.51 M/mm3 (4.30-5.90)
[2019-07-22 06:00] LABS: Anion Gap 7 mmol/L (6-16); Blood Urea Nitrogen 18 mg/dL (8-24); Bun/Creatinine Ratio 22.1 (12.0-20.0); CO2, Blood 28 mmol/L (21-32); Chloride, Blood 104 mmol/L (98-108); Creatinine, Blood 0.81 mg/dL (0.60-1.20); Glomerular Filtration Rate >60 (60-); Glucose, Blood 111 mg/dL (70-99); Potassium, Blood 3.7 mmol/L (3.5-5.5); Sodium, Blood 139 mmol/L (136-145)
--- NOTE | 2019-07-22 06:11 | NUR ---
SHIFT SUMMARY PT WAS A NEW ADMIT DURING THE NIGHT, ARRIVING ON THE FLOOR AT 1926. HE IS A&O X 3, THOUGH [place]. PT WAS ADMITTED FOR HYDRONEPHROSIS R/T AN 8MM KIDNEY STONE. HE HAS BEEN NPO SINCE MIDNIGHT IN PREP FOR A POSSIBLE STENT PLACEMENT TODAY. HE DENIED ANY COMPLAINTS OF ACUTE PAIN OR NAUSEA. PT HAS BEEN ON CONTINUOUS NS @ 100 ML/HR SINCE ADMIT. VITAL SIGNS STABLE. NO OTHER ACUTE CHANGES IN PT CONDITION NOTED SINCE ADMISSION. WILL CONTINUE TO MONITOR AND TREAT PER EMAR UNTIL HAND OFF TO DAY SHIFT RN.
--- NOTE | 2019-07-22 17:50 | NUR ---
SHIFT SUMMARY: PATIENT A&O; [place]; CALM AND COOPERATIVE WITH CARE. NEPROSTOMY TUBE PLACEMENT PLANNED R/T OBSTRUCTING STONE; NO STONE PRESENT ON ULTRASOUND WHEN TAKEN FOR SURGERY; STONE MAY HAVE PASSED; URINE STRAINER PLACED IN TOILET. MEDICATED FOR R FLANK PAIN PER EMAR; STERI STRIPS IN PLACE TO R FLANK. NS @ 100 CONTINUING. POSSIBLE D/C HOME 07/23. [place].
--- NOTE | 2019-07-23 04:33 | NUR ---
VOICED INABILITY TO VOID EVEN WITH PUSHING. SCAN 335, NOTIFIED, ORDER FOR SRT8 CATH X 1 AND RESCAN BLADDER IN 6 HRS AFTER. HEMATURI NOTED WITH SCAN. VOICED RELIEF. BP ELEVATED PRIOR TO CATH. WILL RE CHECK LATER
--- NOTE | 2019-07-23 05:12 | NUR ---
INTERMITTENT PAIN THIS SHIFT, HEMATURIA CONTINUES, NOTE SOME SMALL STONES STRAINED FROM URINE. VOICED DIFFICULTY IN URINATING MED SHIFT - BP ELEVATED. BLADDER SCAN 335. CALL PLACED TO MD, ORDERS RECEIVED FOR STR8 CATH X 1 AND RESCAN BLADDER AGAIN IN 6 HRS. CATH DONE, 275 OUT. VOICED RELIEF AND IV FENTANYL ADMIN - SEE MAR FOR DETAILS. WILL RE ASSESS BP. RESTING AT THIS TIME.
--- NOTE | 2019-07-23 05:17 | NUR ---
BP RETAKEN: 144/83, P 102. INTERVENTIONS EFFECTIVE. WILL MONITOR.
--- NOTE | 2019-07-23 05:43 | NUR ---
SLEEPING AT INTERVALS, AWAKENED AT TIMES WITH PAIN FROM KIDNEYSTONES. NOTED DIFFICULTY WITH URINATION, NOTIFIED, STR8 CATHED, MEDS GIVEN AND BP DECREASED. SLEEPING AT THIS TIME.
[2019-07-23 09:26] LABS: BASOPHILS ABSOLUTE AUTO 0.04 K/mm3 (0.00-0.23); BASOPHILS PERCENT AUTO 0 % (0-2); EOSINOPHILS PERCENT AUTO 0 % (0-6); Hematocrit 31.6 % (37.0-53.0); IMMATURE GRAN ABSOLUTE AUTO 0.05 K/mm3 (0.00-0.10); IMMATURE GRAN PERCENT AUTO 0 % (0-1); LYMPHOCYTES ABSOLUTE AUTO 0.79 K/mm3 (0.84-5.20); LYMPHOCYTES PERCENT AUTO 7 % (21-46); MONOCYTES ABSOLUTE AUTO 1.04 K/mm3 (0.16-1.47); MONOCYTES PERCENT AUTO 9 % (4-13); Mean Corpuscular HGB 31.4 pg (26.0-34.0); Mean Corpuscular HGB Conc 31.6 g/dL (31.5-36.5); Mean Corpuscular Volume 99 fL (80-100); Mean Platelet Volume 9.9 fL (9.1-12.4); NEUTROPHILS ABSOLUTE AUTO 9.29 K/mm3 (1.96-9.15); NEUTROPHILS PERCENT AUTO 83 % (41-73); Platelet Count 250 K/mm3 (150-400); RDW Coefficient Variation 14.7 % (11.7-14.2); Red Blood Cell Count 3.18 M/mm3 (4.30-5.90); White Blood Cell Count 11.21 K/mm3 (4.00-11.30)
[2019-07-23 09:39] LABS: Anion Gap 7 mmol/L (6-16); Blood Urea Nitrogen 18 mg/dL (8-24); Bun/Creatinine Ratio 15.7 (12.0-20.0); CO2, Blood 23 mmol/L (21-32); Calcium, Blood 8.5 mg/dL (8.5-10.1); Chloride, Blood 107 mmol/L (98-108); Creatinine, Blood 1.15 mg/dL (0.60-1.20); Glomerular Filtration Rate >60 (60-); Glucose, Blood 181 mg/dL (70-99); Potassium, Blood 4.3 mmol/L (3.5-5.5); Sodium, Blood 137 mmol/L (136-145)
--- NOTE | 2019-07-23 12:50 | NUR ---
Physician notified Dr. Silvestre notified of manufacturing shift supervisor nurse reports of hematuria from one time straight cath early this morning. Doctor aware.
--- NOTE | 2019-07-23 13:43 | NUR ---
Physician notified Dr. Silvestre notified RE pt requesting more nausea medication and no insulin coverage for blood sugar checks. Orders received.
--- NOTE | 2019-07-23 16:09 | NUR ---
Physician notified Dr. Silvestre notified RE pt c/o N/V. Orders received.
--- NOTE | 2019-07-23 16:23 | NUR ---
Physician notified Dr. Silvestre consulted on whether to administer Phenergan Q6 IV now because an order of Phenergan STAT was given less than [address] Silvestre gave the ok.
--- NOTE | 2019-07-23 17:03 | NUR ---
Shift Summary A/Ox4. Pleasant and cooperative with care. Pain is mildly controlled, medicated for pain x 5, for N/V x 4, and once for temp of 100.3. Patient went for a CT scan once this shift. NPO at this time for possible procedure pending followup from Dr. Oliver. Will continue to monitor.
[2019-07-23 18:58] LABS: Source, Urine Catheter
[2019-07-23 19:06] LABS: Bilirubin, Urine Neg (Neg); Blood, Urine 5+ (Neg); Glucose Qualitative, Urine Neg (Neg); Ketones, Urine 3+ (Neg); Leukocyte Esterase, Urine Neg (Neg); Nitrite, Urine Neg (Neg); Protein, Urine 4+ (Neg); Urobilinogen, Urine NORM (Normal)
[2019-07-23 19:15] LABS: Appearance, Urine Turbid (Clear); Color, Urine Red (P-Yellow)
[2019-07-23 19:17] LABS: Bacteria Many /hpf; Red Blood Cells, Urine TNTC /hpf (0-2); Squamous Epithelial Cells Rare /hpf (Few); White Blood Cells, Urine Rare /hpf (0-5)
[2019-07-24 05:09] LABS: BASOPHILS ABSOLUTE AUTO 0.04 K/mm3 (0.00-0.23); BASOPHILS PERCENT AUTO 0 % (0-2); EOSINOPHILS ABSOLUTE AUTO 0.01 K/mm3 (0.00-0.68); EOSINOPHILS PERCENT AUTO 0 % (0-6); Hematocrit 25.5 % (37.0-53.0); IMMATURE GRAN ABSOLUTE AUTO 0.06 K/mm3 (0.00-0.10); IMMATURE GRAN PERCENT AUTO 1 % (0-1); LYMPHOCYTES ABSOLUTE AUTO 0.99 K/mm3 (0.84-5.20); LYMPHOCYTES PERCENT AUTO 9 % (21-46); MONOCYTES ABSOLUTE AUTO 0.95 K/mm3 (0.16-1.47); MONOCYTES PERCENT AUTO 8 % (4-13); Mean Corpuscular HGB 31.4 pg (26.0-34.0); Mean Corpuscular HGB Conc 31.4 g/dL (31.5-36.5); Mean Corpuscular Volume 100 fL (80-100); Mean Platelet Volume 9.9 fL (9.1-12.4); NEUTROPHILS PERCENT AUTO 82 % (41-73); Platelet Count 196 K/mm3 (150-400); RDW Coefficient Variation 14.9 % (11.7-14.2); RDW Standard Deviation 55.2 fL (35.1-46.3); Red Blood Cell Count 2.55 M/mm3 (4.30-5.90); White Blood Cell Count 11.35 K/mm3 (4.00-11.30)
[2019-07-24 05:29] LABS: Bun/Creatinine Ratio 14.2 (12.0-20.0); Calcium, Blood 8.3 mg/dL (8.5-10.1); Creatinine, Blood 1.27 mg/dL (0.60-1.20); Potassium, Blood 3.9 mmol/L (3.5-5.5)
--- NOTE | 2019-07-24 08:33 | NUR ---
Physician notified Dr. Rocha notified RE coarse/fine crackles in lungs on morning assessment. Orders received to D/C NS @ 100mls/hr and proceed with NS KCl 20 mEq @ 75mls/hr. Order also received for incentive spirometer. Pt encouraged to ambulate.
--- NOTE | 2019-07-24 16:48 | NUR ---
Shift Summary A/O x 4. Patient was encouraged to ambulate today and he did once. Also ambulated to bathroom x 1 assist c FWW and gait. Pt c/o mild dizziness when getting up. Also c/o nausea and hiccuping. Received orders for hiccuping per EMAR. Medicated for nausea x 1 and pain x 2. Patient hasn't complained about pain as much compared to yesterday. Bilat lower lobes had coarse and fine crackles (this is a new finding today). No other acute changes this shift.
--- NOTE | 2019-07-24 17:18 | NUR ---
ADD-On to Shift Summary Pt continues to have hematuria. No bowel movement today, only gas.
--- NOTE | 2019-07-25 04:43 | NUR ---
Shift summary. Pt slept well during the shift. Pt medicated x 1 with dilaudid with adequate pain relief. Womack in place draining dark red urine. No nausea reported. No significant changes. Urine strained- no stones noted. Pain seems to come and go.
[2019-07-25 04:50] LABS: BASOPHILS ABSOLUTE AUTO 0.02 K/mm3 (0.00-0.23); BASOPHILS PERCENT AUTO 0 % (0-2); EOSINOPHILS ABSOLUTE AUTO 0.11 K/mm3 (0.00-0.68); EOSINOPHILS PERCENT AUTO 1 % (0-6); Hematocrit 22.1 % (37.0-53.0); IMMATURE GRAN ABSOLUTE AUTO 0.02 K/mm3 (0.00-0.10); IMMATURE GRAN PERCENT AUTO 0 % (0-1); LYMPHOCYTES ABSOLUTE AUTO 1.14 K/mm3 (0.84-5.20); LYMPHOCYTES PERCENT AUTO 15 % (21-46); MONOCYTES PERCENT AUTO 8 % (4-13); Mean Corpuscular HGB 32.3 pg (26.0-34.0); Mean Corpuscular HGB Conc 31.7 g/dL (31.5-36.5); Mean Corpuscular Volume 102 fL (80-100); Mean Platelet Volume 9.6 fL (9.1-12.4); NEUTROPHILS ABSOLUTE AUTO 5.83 K/mm3 (1.96-9.15); NEUTROPHILS PERCENT AUTO 75 % (41-73); Platelet Count 176 K/mm3 (150-400); RDW Coefficient Variation 14.6 % (11.7-14.2); RDW Standard Deviation 54.4 fL (35.1-46.3); Red Blood Cell Count 2.17 M/mm3 (4.30-5.90); White Blood Cell Count 7.72 K/mm3 (4.00-11.30)
[2019-07-25 05:07] LABS: Albumin, Blood 2.4 g/dL (3.4-5.0); Anion Gap 5 mmol/L (6-16); Blood Urea Nitrogen 18 mg/dL (8-24); Bun/Creatinine Ratio 15.1 (12.0-20.0); CO2, Blood 25 mmol/L (21-32); Chloride, Blood 106 mmol/L (98-108); Creatinine, Blood 1.19 mg/dL (0.60-1.20); Glomerular Filtration Rate >60 (60-); Glucose, Blood 129 mg/dL (70-99); Phosphorus, Blood 1.9 mg/dL (2.5-4.9); Potassium, Blood 3.8 mmol/L (3.5-5.5); Sodium, Blood 136 mmol/L (136-145)
--- NOTE | 2019-07-25 16:55 | NUR ---
PATIENT A/OX4, [place]. UP WITH FWW, GAIT BELT AND SBA. DIAZ TO GRAVITY WITH ADEQUATE U/O. VSS, ON RA. 1 UNIT OF PRBC'S GIVEN THIS SHIFT FOR A HGB OF 7.0. PATIENT HAD A BM YESTERDAY, BUT FEELS CONSTIPATED. DUCOLAX GIVEN TO TREAT. THORAZINE GIVEN X1 TODAY FOR HICCUPS. DILAUDID GIVEN X1 TODAY TO TREAT R FLANK PAIN. DRESSING TO INCISION ON ABDOMEN REMAINS C/D/I. 20G IV TO L AC WNL, NSWITH 20K INFUSING. PATIENT IS CALM AND COOPERATIVE WITH CARE AND CALLS APPROPRIATELY FOR ASSISTANCE.
--- NOTE | 2019-07-26 04:10 | NUR ---
shift summary. Pt did well overnight. Pt slept most of shift. One dose of dilaudid gave adequate pain relief. Urine output jeff colored with no stone noted. Abdominal incision clean dry and intact. Pt awaiting a renal stent placement on saturday. Pt up x 2 ambulating at beginning of shift.
[2019-07-26 04:57] LABS: BASOPHILS ABSOLUTE AUTO 0.03 K/mm3 (0.00-0.23); BASOPHILS PERCENT AUTO 0 % (0-2); EOSINOPHILS ABSOLUTE AUTO 0.43 K/mm3 (0.00-0.68); EOSINOPHILS PERCENT AUTO 6 % (0-6); Hematocrit 23.9 % (37.0-53.0); Hemoglobin 7.7 g/dL (13.5-17.5); IMMATURE GRAN ABSOLUTE AUTO 0.03 K/mm3 (0.00-0.10); IMMATURE GRAN PERCENT AUTO 0 % (0-1); LYMPHOCYTES PERCENT AUTO 15 % (21-46); MONOCYTES ABSOLUTE AUTO 0.55 K/mm3 (0.16-1.47); MONOCYTES PERCENT AUTO 8 % (4-13); Mean Corpuscular HGB 31.4 pg (26.0-34.0); Mean Corpuscular HGB Conc 32.2 g/dL (31.5-36.5); Mean Platelet Volume 9.6 fL (9.1-12.4); NEUTROPHILS ABSOLUTE AUTO 4.75 K/mm3 (1.96-9.15); NEUTROPHILS PERCENT AUTO 70 % (41-73); Platelet Count 187 K/mm3 (150-400); RDW Coefficient Variation 15.4 % (11.7-14.2); RDW Standard Deviation 55.5 fL (35.1-46.3); Red Blood Cell Count 2.45 M/mm3 (4.30-5.90); White Blood Cell Count 6.79 K/mm3 (4.00-11.30)
[2019-07-26 04:58] LABS: Mean Corpuscular Volume 98 fL (80-100)
[2019-07-26 05:15] LABS: Albumin, Blood 2.2 g/dL (3.4-5.0); Anion Gap 6 mmol/L (6-16); Blood Urea Nitrogen 21 mg/dL (8-24); Bun/Creatinine Ratio 18.6 (12.0-20.0); CO2, Blood 24 mmol/L (21-32); Calcium, Blood 7.8 mg/dL (8.5-10.1); Chloride, Blood 108 mmol/L (98-108); Creatinine, Blood 1.13 mg/dL (0.60-1.20); Glomerular Filtration Rate >60 (60-); Glucose, Blood 126 mg/dL (70-99); Magnesium, Blood 1.5 mg/dL (1.6-2.4); Phosphorus, Blood 1.5 mg/dL (2.5-4.9); Potassium, Blood 3.8 mmol/L (3.5-5.5); Sodium, Blood 138 mmol/L (136-145)
--- NOTE | 2019-07-26 17:40 | NUR ---
PATIENT IS ALERT AND ORIENTED AND COOPERATIVE WITH CARE. HE COMPLAINED OF PAIN ONCE TODAY, TREATED PER EMAR. HE HAD VISITORS AT THE BEDSIDE THROUGHOUT THE DAY. HE WAS SHOWERED THIS MORNING. MIKE COLORED URINE DRAINING FROM DIAZ. WILL CONTINUE TO MONITOR
--- NOTE | 2019-07-27 04:40 | NUR ---
Shift summary. Pt medicated x 2 during night for abdominal pain. Pt up to BR x 3 during night- having diahreal stools. Urine color almost back to normal color. Pt getting an ultrasound in am to see if kidney stone has passed to determine if he still needs a stent placed.
[2019-07-27 05:08] LABS: BASOPHILS ABSOLUTE AUTO 0.03 K/mm3 (0.00-0.23); BASOPHILS PERCENT AUTO 1 % (0-2); EOSINOPHILS ABSOLUTE AUTO 0.52 K/mm3 (0.00-0.68); EOSINOPHILS PERCENT AUTO 9 % (0-6); Hemoglobin 8.6 g/dL (13.5-17.5); IMMATURE GRAN ABSOLUTE AUTO 0.01 K/mm3 (0.00-0.10); IMMATURE GRAN PERCENT AUTO 0 % (0-1); LYMPHOCYTES ABSOLUTE AUTO 0.87 K/mm3 (0.84-5.20); LYMPHOCYTES PERCENT AUTO 14 % (21-46); MONOCYTES ABSOLUTE AUTO 0.55 K/mm3 (0.16-1.47); MONOCYTES PERCENT AUTO 9 % (4-13); Mean Corpuscular HGB 30.9 pg (26.0-34.0); Mean Corpuscular HGB Conc 31.9 g/dL (31.5-36.5); Mean Corpuscular Volume 97 fL (80-100); Mean Platelet Volume 9.3 fL (9.1-12.4); NEUTROPHILS ABSOLUTE AUTO 4.17 K/mm3 (1.96-9.15); NEUTROPHILS PERCENT AUTO 68 % (41-73); Platelet Count 242 K/mm3 (150-400); RDW Coefficient Variation 15.1 % (11.7-14.2); RDW Standard Deviation 53.8 fL (35.1-46.3); Red Blood Cell Count 2.78 M/mm3 (4.30-5.90); White Blood Cell Count 6.15 K/mm3 (4.00-11.30)
[2019-07-27 05:21] LABS: Albumin, Blood 2.3 g/dL (3.4-5.0); Anion Gap 7 mmol/L (6-16); Blood Urea Nitrogen 17 mg/dL (8-24); Bun/Creatinine Ratio 15.2 (12.0-20.0); CO2, Blood 24 mmol/L (21-32); Calcium, Blood 7.8 mg/dL (8.5-10.1); Chloride, Blood 106 mmol/L (98-108); Creatinine, Blood 1.12 mg/dL (0.60-1.20); Glomerular Filtration Rate >60 (60-); Glucose, Blood 107 mg/dL (70-99); Magnesium, Blood 1.4 mg/dL (1.6-2.4); Phosphorus, Blood 1.7 mg/dL (2.5-4.9); Potassium, Blood 3.7 mmol/L (3.5-5.5); Sodium, Blood 137 mmol/L (136-145)
[2019-07-27] MEDS ORDERED: ACET325 PO (14:38)
[2019-07-27] MEDS ORDERED: LISI5 PO (14:39)
[2019-07-27] MEDS ORDERED: OXYC5 PO (14:40)
--- NOTE | 2019-07-27 15:47 | NUR ---
PT A&O X4. PT DENIED ANY PAIN. PT DIAZ REMOVED PER DOCTOR'S ORDERS. PT ABLE TO VOID AFTER DIAZ REMOVAL. PT UP TO BATHROOM X2 WITH LOOSE STOOLS. PT REFUSED SHOWER. DISCHARGED HOME WITH . THIS RN TRANSPORTED PT TO CAR AND PT ABLE TO AMBULATE INTO CAR WITHOUT ISSUES.
== END 2019-07-27 15:03 | disposition home or self-care (01) | DRG 694 ==
LOC: ER 13:30 → MEDS 18:31
PROVIDERS: Family Medicine; Internal Medicine Gastroenterology; Physician Assistant; ADMIT Internal Medicine
PROC: BT111ZZ Fluoroscopy of Right Kidney using Low Osmolar Contrast (ICD-10-PCS; principal; 2019-07-22)
PROC: 30233N1 Transfusion of Nonautologous Red Blood Cells into Peripheral Vein, Percutaneous Approach (ICD-10-PCS; 2019-07-25)
DX: N13.2 Hydronephrosis with renal and ureteral calculous obstruction (principal); S37.011A Minor contusion of right kidney, initial encounter; T81.31XA Disruption of external operation (surgical) wound, not elsewhere classified, initial encounter; D62 Acute posthemorrhagic anemia; S37.019A Minor contusion of unspecified kidney, initial encounter; Z79.84 Long term (current) use of oral hypoglycemic drugs; N39.0 Urinary tract infection, site not specified; N17.9 Acute kidney failure, unspecified; I25.10 Atherosclerotic heart disease of native coronary artery without angina pectoris; Z95.5 Presence of coronary angioplasty implant and graft; E11.9 Type 2 diabetes mellitus without complications; I10 Essential (primary) hypertension; E78.5 Hyperlipidemia, unspecified; N40.0 Benign prostatic hyperplasia without lower urinary tract symptoms; Z87.891 Personal history of nicotine dependence; Z79.82 Long term (current) use of aspirin; B96.20 Unspecified Escherichia coli [E. coli] as the cause of diseases classified elsewhere; F32.9 Major depressive disorder, single episode, unspecified; M10.9 Gout, unspecified; K59.09 Other constipation; Y84.8 Other medical procedures as the cause of abnormal reaction of the patient, or of later complication, without mention of misadventure at the time of the procedure
CPT/HCPCS: 36415; 36430; 50430; 50432; 51702; 74176; 76770; 76998; 80048; 80053; 80069; 81001; 82947; 83690; 83735; 85025; 86850; 86900; 86901; 86923; 96374; 99152; 99153; 99285-25; A9270; C1729; C1769; J0696; J1170; J1650; J2250; J2405; J2550; J3010; J3480; J7030; J7040; J7050; P9016; Q9967

== ENCOUNTER 2019-08-10 13:21 | Emergency (ER) | payer MEDICARE, BC ==
[~2019-08-10] VITALS: Ht 182.9 cm; Wt 79.4 kg
[~2019-08-10 13:21] MED LIST changes: +ACET325 PO; +Aspir 8181 MG PO; +MELATONIN5 M1 PO; +VITAMIN D22000 UNIT PO
[2019-08-10 14:15] LABS: BASOPHILS ABSOLUTE AUTO 0.07 K/mm3 (0.00-0.23); BASOPHILS PERCENT AUTO 1 % (0-2); EOSINOPHILS ABSOLUTE AUTO 0.15 K/mm3 (0.00-0.68); EOSINOPHILS PERCENT AUTO 3 % (0-6); Hematocrit 40.1 % (37.0-53.0); Hemoglobin 12.6 g/dL (13.5-17.5); IMMATURE GRAN ABSOLUTE AUTO 0.01 K/mm3 (0.00-0.10); IMMATURE GRAN PERCENT AUTO 0 % (0-1); LYMPHOCYTES ABSOLUTE AUTO 1.71 K/mm3 (0.84-5.20); LYMPHOCYTES PERCENT AUTO 29 % (21-46); MONOCYTES PERCENT AUTO 9 % (4-13); Mean Corpuscular HGB 30.6 pg (26.0-34.0); Mean Corpuscular HGB Conc 31.4 g/dL (31.5-36.5); Mean Corpuscular Volume 97 fL (80-100); Mean Platelet Volume 9.1 fL (9.1-12.4); NEUTROPHILS ABSOLUTE AUTO 3.37 K/mm3 (1.96-9.15); NEUTROPHILS PERCENT AUTO 58 % (41-73); Platelet Count 522 K/mm3 (150-400); RDW Coefficient Variation 14.2 % (11.7-14.2); RDW Standard Deviation 50.8 fL (35.1-46.3); Red Blood Cell Count 4.12 M/mm3 (4.30-5.90); White Blood Cell Count 5.81 K/mm3 (4.00-11.30)
[2019-08-10 14:41] LABS: Alanine Aminotransfer (ALT/SGP 16 U/L (12-78); Albumin, Blood 3.9 g/dL (3.4-5.0); Albumin/Globulin Ratio 0.7 (0.8-1.8); Alk Phos 83 U/L (50-136); Anion Gap 7 mmol/L (6-16); Aspartate Aminotrans (AST/SGOT 27 U/L (12-37); Bilirubin, Total 0.4 mg/dL (0.1-1.0); Blood Urea Nitrogen 34 mg/dL (8-24); CO2, Blood 27 mmol/L (21-32); Chloride, Blood 100 mmol/L (98-108); Creatinine, Blood 1.31 mg/dL (0.60-1.20); Globulin, Blood 5.6 g/dL (2.2-4.0); Glomerular Filtration Rate 56 (60-); Glucose, Blood 146 mg/dL (70-99); Potassium, Blood 4.7 mmol/L (3.5-5.5); Sodium, Blood 134 mmol/L (136-145); Total Protein, Blood 9.5 g/dL (6.4-8.2); Troponin I <0.015 ng/mL (0.000-0.040)
== END 2019-08-10 18:07 | disposition home or self-care (01) ==
LOC: ER 13:21
PROVIDERS: Physician Assistant
DX: I95.1 Orthostatic hypotension (principal); E86.0 Dehydration; I25.10 Atherosclerotic heart disease of native coronary artery without angina pectoris; I10 Essential (primary) hypertension; E78.5 Hyperlipidemia, unspecified; E11.9 Type 2 diabetes mellitus without complications; E03.9 Hypothyroidism, unspecified; Z79.899 Other long term (current) drug therapy; Z79.82 Long term (current) use of aspirin; Z88.0 Allergy status to penicillin; Z88.5 Allergy status to narcotic agent; Z87.442 Personal history of urinary calculi; Z87.891 Personal history of nicotine dependence
CPT/HCPCS: 36415; 71046; 80053; 84484; 85025; 93005; 93010; 96360; 99285-25; J7030

== ENCOUNTER 2019-09-17 11:42 | Day surgery (SDC) | payer MEDICARE, BC ==
[~2019-09-17] VITALS: Ht 182.9 cm; Wt 77.8 kg
[~2019-09-17 11:42] MED LIST changes: +ALPR.25 PO; +Aspirin EC81 MG PO; +EUTHYROX100 MCG PO; +Ferrous Sulfat325 M2 PO; +Lopressor 25 mg25 MG PO; +MELATONIN10 M2 PO; +PAXIL40 MG PO; +Simvastatin40 MG PO; +VITAMIN D31000 UNI2 PO
--- NOTE | 2019-09-17 12:28 | NUR ---
09/17/19 1228 Aleida Suh PT PLEASANT IN PREOP. TEACHING PROVIDED. CALL LIGHT WITHIN REACH. PT STATES HE IS COMFORTABLE AT THIS TIME.
== END 2019-09-17 13:44 | disposition home or self-care (01) ==
LOC: ORSCSDS 11:42
DX: Z87.11 Personal history of peptic ulcer disease (principal); E03.9 Hypothyroidism, unspecified; E78.5 Hyperlipidemia, unspecified; E11.9 Type 2 diabetes mellitus without complications; F32.9 Major depressive disorder, single episode, unspecified; Z87.891 Personal history of nicotine dependence; Z79.84 Long term (current) use of oral hypoglycemic drugs; Z79.899 Other long term (current) drug therapy
CPT/HCPCS: 82947; 88305; 88342; J2704; J7120

== ENCOUNTER 2019-11-25 16:48 | Emergency (ER) | payer MEDICARE, BC ==
[~2019-11-25] VITALS: Ht 182.9 cm; Wt 81.7 kg
[2019-11-25 17:24] LABS: BASOPHILS ABSOLUTE AUTO 0.03 K/mm3 (0.00-0.23); BASOPHILS PERCENT AUTO 0 % (0-2); EOSINOPHILS ABSOLUTE AUTO 0.15 K/mm3 (0.00-0.68); EOSINOPHILS PERCENT AUTO 1 % (0-6); Hematocrit 35.4 % (37.0-53.0); Hemoglobin 11.7 g/dL (13.5-17.5); IMMATURE GRAN ABSOLUTE AUTO 0.02 K/mm3 (0.00-0.10); IMMATURE GRAN PERCENT AUTO 0 % (0-1); LYMPHOCYTES ABSOLUTE AUTO 1.23 K/mm3 (0.84-5.20); LYMPHOCYTES PERCENT AUTO 11 % (21-46); MONOCYTES ABSOLUTE AUTO 0.89 K/mm3 (0.16-1.47); MONOCYTES PERCENT AUTO 8 % (4-13); Mean Corpuscular HGB 33.2 pg (26.0-34.0); Mean Corpuscular HGB Conc 33.1 g/dL (31.5-36.5); Mean Corpuscular Volume 101 fL (80-100); Mean Platelet Volume 9.7 fL (9.1-12.4); NEUTROPHILS ABSOLUTE AUTO 9.29 K/mm3 (1.96-9.15); NEUTROPHILS PERCENT AUTO 80 % (41-73); Platelet Count 251 K/mm3 (150-400); RDW Coefficient Variation 13.9 % (11.7-14.2); RDW Standard Deviation 51.3 fL (35.1-46.3); Red Blood Cell Count 3.52 M/mm3 (4.30-5.90); White Blood Cell Count 11.61 K/mm3 (4.00-11.30)
[2019-11-25 17:35] LABS: Albumin, Blood 3.9 g/dL (3.4-5.0); Albumin/Globulin Ratio 0.9 (0.8-1.8); Bilirubin, Total 0.8 mg/dL (0.1-1.0); Bun/Creatinine Ratio 18.8 (12.0-20.0); Calcium, Blood 9.3 mg/dL (8.5-10.1); Creatinine, Blood 1.28 mg/dL (0.60-1.20); Globulin, Blood 4.4 g/dL (2.2-4.0); Potassium, Blood 3.6 mmol/L (3.5-5.5); Total Protein, Blood 8.3 g/dL (6.4-8.2)
[2019-11-25 18:03] LABS: Source, Urine Clean Catch
[2019-11-25 18:08] LABS: Bilirubin, Urine Neg (Neg); Blood, Urine 1+ (Neg); Glucose Qualitative, Urine Neg (Neg); Ketones, Urine Neg (Neg); Leukocyte Esterase, Urine 1+ (Neg); Nitrite, Urine Neg (Neg); Protein, Urine 2+ (Neg); Urobilinogen, Urine NORM (Normal)
[2019-11-25 18:10] LABS: Appearance, Urine Hazy (Clear); Color, Urine Yellow (P-Yellow)
[2019-11-25 18:15] LABS: Bacteria Mod /hpf; Mucus Light (0-Heavy); Red Blood Cells, Urine 0-2 /hpf (0-2); Squamous Epithelial Cells Few /hpf (Few); White Blood Cells, Urine 0-2 /hpf (0-5)
[2019-11-25] MEDS ORDERED: TAMSULOSIN HCL0.4 M1 PO (18:27)
[2019-11-25] MEDS ORDERED: Cipro500 MG PO (20:24)
[2019-11-25] MEDS ORDERED: Flagyl500 MG PO (20:24)
== END 2019-11-25 21:05 | disposition home or self-care (01) ==
LOC: ER 16:48
PROVIDERS: Physician Assistant
DX: K57.32 Diverticulitis of large intestine without perforation or abscess without bleeding (principal); E11.9 Type 2 diabetes mellitus without complications; I10 Essential (primary) hypertension; Z88.0 Allergy status to penicillin; Z88.5 Allergy status to narcotic agent; Z79.899 Other long term (current) drug therapy; Z79.84 Long term (current) use of oral hypoglycemic drugs; Z79.82 Long term (current) use of aspirin; Z87.891 Personal history of nicotine dependence
CPT/HCPCS: 36415; 74177; 80053; 81001; 83690; 85025; 87086; 99284-25; A9270; A9270-GY; Q9967

== ENCOUNTER → 2021-09-08 | Outpatient (CLI) | payer MEDICARE, BC ==
[~2021-09-08] MED LIST changes: +TAMSULOSIN HCL0.4 M1 PO
== END | disposition home or self-care (01) ==
LOC: LAB SHORT 17:26
DX: L72.3 Sebaceous cyst (principal)
CPT/HCPCS: 87070; 87075; 87205

== ENCOUNTER 2022-03-05 11:48 | Inpatient (IN) | payer MEDICARE, BC ==
[~2022-03-05] VITALS: Ht 182.9 cm; Wt 81.1 kg
[~2022-03-05 11:48] MED LIST changes: +AZIT250 PO; +CEFP200 PO; +FERSU300 PO; -Ferrous Sulfat325 M2 PO; -Lopressor 25 mg25 MG PO; +METO25ER PO; +ONDA4 PO; +VITAMIN D31000 UNI1 PO; -VITAMIN D31000 UNI2 PO
[2022-03-05 12:25] LABS: BASOPHILS ABSOLUTE AUTO 0.03 K/mm3 (0.00-0.23); BASOPHILS PERCENT AUTO 0 % (0-2); EOSINOPHILS ABSOLUTE AUTO 0.01 K/mm3 (0.00-0.68); EOSINOPHILS PERCENT AUTO 0 % (0-6); Hematocrit 38.4 % (37.0-53.0); Hemoglobin 12.9 g/dL (13.5-17.5); IMMATURE GRAN ABSOLUTE AUTO 0.09 K/mm3 (0.00-0.10); IMMATURE GRAN PERCENT AUTO 1 % (0-1); LYMPHOCYTES PERCENT AUTO 3 % (21-46); MONOCYTES ABSOLUTE AUTO 1.09 K/mm3 (0.16-1.47); MONOCYTES PERCENT AUTO 7 % (4-13); Mean Corpuscular HGB 33.1 pg (26.0-34.0); Mean Corpuscular HGB Conc 33.6 g/dL (31.5-36.5); Mean Corpuscular Volume 99 fL (80-100); Mean Platelet Volume 8.9 fL (9.1-12.4); NEUTROPHILS ABSOLUTE AUTO 14.04 K/mm3 (1.96-9.15); NEUTROPHILS PERCENT AUTO 90 % (41-73); Platelet Count 286 K/mm3 (150-400); RDW Standard Deviation 46.8 fL (35.1-46.3); White Blood Cell Count 15.66 K/mm3 (4.00-11.30)
[2022-03-05 12:46] LABS: Albumin, Blood 3.8 g/dL (3.4-5.0); Albumin/Globulin Ratio 0.9 (0.8-1.8); Bilirubin, Direct 0.3 mg/dL (0.0-0.3); Bilirubin, Indirect 0.6 mg/dL (0.1-0.7); Bilirubin, Total 0.9 mg/dL (0.1-1.0); Bun/Creatinine Ratio 20.1 (12.0-20.0); Calcium, Blood 8.9 mg/dL (8.5-10.1); Creatinine, Blood 1.39 mg/dL (0.60-1.20); Globulin, Blood 4.1 g/dL (2.2-4.0); Magnesium, Blood 1.6 mg/dL (1.6-2.4); Potassium, Blood 4.5 mmol/L (3.5-5.5); Total Protein, Blood 7.9 g/dL (6.4-8.2)
[2022-03-05 12:49] LABS: Source, Urine Clean Catch
[2022-03-05 13:06] LABS: Appearance, Urine Clear (Clear); Bilirubin, Urine Neg (Neg); Blood, Urine Neg (Neg); Color, Urine Yellow (P-Yellow); Glucose Qualitative, Urine Neg (Neg); Ketones, Urine Neg (Neg); Leukocyte Esterase, Urine Neg (Neg); Nitrite, Urine Neg (Neg); Protein, Urine Neg (Neg); Urobilinogen, Urine NORM (Normal)
[2022-03-05 13:37] LABS: International Normalized Ratio 1.08; Prothrombin Time Results 11.3 Sec (9.7-11.5)
[2022-03-05 13:39] LABS: Influenza A, PCR NEGATIVE (NEGATIVE); Influenza B, PCR NEGATIVE (NEGATIVE); Resp Syncytial Virus, PCR NEGATIVE (NEGATIVE)
[2022-03-05 13:50] LABS: SARS-Cov-2 (COVID-19) PCR, MMC POSITIVE (NEGATIVE)
--- NOTE | 2022-03-05 18:26 | NUR ---
SHIFT SUMMARY: PT ADMITTED FROM THE ED DUE TO COVID PNA. PT ORIENTED TO ROOM, CALL LIGHT, AND BED CONTROLS. PATIENT ABLE TO URINATE IN URINAL INDEPENDENTLY. CALLS APPROPRIATELY. PATIENT IS ON ROOM AIR, SATURATING 100%. BED IN LOW POSITION. CALL LIGHT IN REACH. WILL REPORT TO NIGHT NURSE.
--- NOTE | 2022-03-05 18:48 | NUR ---
UNABLE TO COMPLETE ADMISSION ASSESSMENTS BECAUSE ECHO WAS BEING DONE JUST PRIOR TO THE END OF MY SHIFT. REMAINDER OF ASSESSMENTS AND MEDICATION RECONCILIATION NEEDS TO BE DONE STILL.
--- NOTE | 2022-03-06 04:39 | NUR ---
PT A & 0X4. [place]. V/S WNL. DROPPLET PRECAUTIONS PER COVID + PROTOCOL. PT DENIED ANY PAIN. ACCUCHEK AC&HS; HS BS: 133. NO COVERAGE REQUIRED. GRAM + BACILLI. PT DENIED ANY PAIN. IV TO R) FOREARM FLUSHED W/O DIFFICULTY. PT VOIDED PER URINAL W/O DIFFICULTY. 1-ASSIST WITH GB. NO AMBULATION THIS SHIFT. NO BM THIS SHIFT. TELE: SINUS RYTHM; HR 62BPM. WILL CONTINUE TO MONITOR.
[2022-03-06 05:18] LABS: BASOPHILS ABSOLUTE AUTO 0.04 K/mm3 (0.00-0.23); BASOPHILS PERCENT AUTO 1 % (0-2); EOSINOPHILS ABSOLUTE AUTO 0.08 K/mm3 (0.00-0.68); EOSINOPHILS PERCENT AUTO 1 % (0-6); Hematocrit 31.2 % (37.0-53.0); Hemoglobin 10.8 g/dL (13.5-17.5); IMMATURE GRAN ABSOLUTE AUTO 0.03 K/mm3 (0.00-0.10); IMMATURE GRAN PERCENT AUTO 0 % (0-1); LYMPHOCYTES ABSOLUTE AUTO 1.19 K/mm3 (0.84-5.20); LYMPHOCYTES PERCENT AUTO 16 % (21-46); MONOCYTES ABSOLUTE AUTO 0.75 K/mm3 (0.16-1.47); MONOCYTES PERCENT AUTO 10 % (4-13); Mean Corpuscular HGB 34.3 pg (26.0-34.0); Mean Corpuscular HGB Conc 34.6 g/dL (31.5-36.5); Mean Corpuscular Volume 99 fL (80-100); NEUTROPHILS ABSOLUTE AUTO 5.37 K/mm3 (1.96-9.15); NEUTROPHILS PERCENT AUTO 72 % (41-73); Platelet Count 243 K/mm3 (150-400); RDW Coefficient Variation 13.2 % (11.7-14.2); RDW Standard Deviation 48.1 fL (35.1-46.3); Red Blood Cell Count 3.15 M/mm3 (4.30-5.90); White Blood Cell Count 7.46 K/mm3 (4.00-11.30)
[2022-03-06 05:33] LABS: Anion Gap 6 mmol/L (6-16); Blood Urea Nitrogen 27 mg/dL (8-24); Bun/Creatinine Ratio 22.9 (12.0-20.0); CO2, Blood 24 mmol/L (21-32); Calcium, Blood 8.5 mg/dL (8.5-10.1); Chloride, Blood 109 mmol/L (98-108); Creatinine, Blood 1.18 mg/dL (0.60-1.20); Glomerular Filtration Rate 59 (60-); Glucose, Blood 92 mg/dL (70-99); Magnesium, Blood 1.7 mg/dL (1.6-2.4); Phosphorus, Blood 2.8 mg/dL (2.5-4.9); Potassium, Blood 4.1 mmol/L (3.5-5.5); Sodium, Blood 139 mmol/L (136-145)
[2022-03-06] MEDS ORDERED: CLAR500 PO (10:48)
[2022-03-06] MEDS ORDERED: CEFP200 PO (10:49)
--- NOTE | 2022-03-06 13:40 | NUR ---
DISCHARGE SUMMARY PATIENT IS ALERT AND ORIENTED X4. PATIENT WAS ADMITTED FOR COVID. PATIENT ON ROOM AIR. PATIENT HAS HAD NO ACUTE EVENTS THIS SHIFT. VITAL SIGNS REVIEWED. PATIENT WAS DISCHARGED HOME. PATIENT AGREED AND UNDERSTOOD ALL DISCHARGE INFORMATION. MEDICATIONS FAXED TO PATIENTS STATED PHARMACY. PATIENT WHEELED OUT BY [place] AND DROVE PATIENT.
== END 2022-03-06 13:43 | disposition home or self-care (01) | DRG 871 ==
LOC: ER 11:48 → MEDS 15:19
PROVIDERS: Student in an Organized Health Care Education/Training Program; ADMIT Family Medicine
DX: A41.9 Sepsis, unspecified organism (principal); J18.9 Pneumonia, unspecified organism; U07.1 COVID-19; R65.21 Severe sepsis with septic shock; I13.0 Hypertensive heart and chronic kidney disease with heart failure and stage 1 through stage 4 chronic kidney disease, or unspecified chronic kidney disease; I50.22 Chronic systolic (congestive) heart failure; I25.10 Atherosclerotic heart disease of native coronary artery without angina pectoris; E78.5 Hyperlipidemia, unspecified; N40.0 Benign prostatic hyperplasia without lower urinary tract symptoms; F41.9 Anxiety disorder, unspecified; F32.A Depression, unspecified; E11.22 Type 2 diabetes mellitus with diabetic chronic kidney disease; N18.9 Chronic kidney disease, unspecified; E03.9 Hypothyroidism, unspecified; Z88.0 Allergy status to penicillin; Z88.5 Allergy status to narcotic agent; Z79.82 Long term (current) use of aspirin; Z79.899 Other long term (current) drug therapy; Z79.84 Long term (current) use of oral hypoglycemic drugs; Z95.1 Presence of aortocoronary bypass graft; Z90.49 Acquired absence of other specified parts of digestive tract; Z98.890 Other specified postprocedural states
CPT/HCPCS: 0241U; 36415; 71045; 80053; 80069; 81003; 82248; 82947; 83605; 83735; 84145; 85025; 85610; 85730; 87040; 87077; 87186; 93005; 93010; 96361; 96365; 97161; 97165; 97530; 97535; 99285-25; A9270; C8929; J0696; J1644; J2543; J7030; J7120; Q9957

== ENCOUNTER 2022-05-16 08:12 | Inpatient (IN) | payer MEDICARE, BC ==
[~2022-05-16] VITALS: Ht 182.9 cm; Wt 80.9 kg
[~2022-05-16 08:12] MED LIST changes: +CLAR500 PO
[2022-05-16 09:05] LABS: BASOPHILS ABSOLUTE AUTO 0.04 K/mm3 (0.00-0.23); BASOPHILS PERCENT AUTO 1 % (0-2); EOSINOPHILS ABSOLUTE AUTO 0.11 K/mm3 (0.00-0.68); EOSINOPHILS PERCENT AUTO 2 % (0-6); Hematocrit 32.9 % (37.0-53.0); Hemoglobin 11.1 g/dL (13.5-17.5); IMMATURE GRAN ABSOLUTE AUTO 0.01 K/mm3 (0.00-0.10); IMMATURE GRAN PERCENT AUTO 0 % (0-1); LYMPHOCYTES ABSOLUTE AUTO 0.98 K/mm3 (0.84-5.20); LYMPHOCYTES PERCENT AUTO 20 % (21-46); MONOCYTES ABSOLUTE AUTO 0.42 K/mm3 (0.16-1.47); MONOCYTES PERCENT AUTO 9 % (4-13); Mean Corpuscular HGB 33.8 pg (26.0-34.0); Mean Corpuscular HGB Conc 33.7 g/dL (31.5-36.5); Mean Corpuscular Volume 100 fL (80-100); Mean Platelet Volume 9.3 fL (9.1-12.4); NEUTROPHILS ABSOLUTE AUTO 3.34 K/mm3 (1.96-9.15); NEUTROPHILS PERCENT AUTO 68 % (41-73); Platelet Count 253 K/mm3 (150-400); RDW Coefficient Variation 13.5 % (11.7-14.2); RDW Standard Deviation 50.4 fL (35.1-46.3); Red Blood Cell Count 3.28 M/mm3 (4.30-5.90)
[2022-05-16 09:39] LABS: Magnesium, Blood 1.5 mg/dL (1.6-2.4)
[2022-05-16 09:40] LABS: Albumin, Blood 3.3 g/dL (3.4-5.0); Albumin/Globulin Ratio 0.6 (0.8-1.8); Bilirubin, Total 0.5 mg/dL (0.1-1.0); Calcium, Blood 9.1 mg/dL (8.5-10.1); Creatinine, Blood 1.25 mg/dL (0.60-1.20); Globulin, Blood 5.1 g/dL (2.2-4.0); Potassium, Blood 4.2 mmol/L (3.5-5.5); Total Protein, Blood 8.4 g/dL (6.4-8.2)
[2022-05-16 11:31] LABS: Source, Urine Clean Catch
[2022-05-16 11:36] LABS: Appearance, Urine Clear (Clear); Bilirubin, Urine Neg (Neg); Blood, Urine Neg (Neg); Color, Urine Yellow (P-Yellow); Glucose Qualitative, Urine Neg (Neg); Ketones, Urine Neg (Neg); Leukocyte Esterase, Urine Neg (Neg); Nitrite, Urine Neg (Neg); Protein, Urine Neg (Neg); Specific Gravity, Urine 1.015 (1.003-1.022); Urobilinogen, Urine NORM (Normal)
[2022-05-16] MEDS ORDERED: ALLO100 PO (14:24)
[2022-05-16] MEDS ORDERED: METO25ER PO (14:25)
[2022-05-16] MEDS ORDERED: PARO20 PO (14:25)
[2022-05-16] MEDS ORDERED: TAMS.4ER PO (14:26)
[2022-05-16] MEDS ORDERED: METFORMIN ER G500 MG PO (14:26)
[2022-05-16] MEDS ORDERED: Simvastatin40 MG PO (14:27)
[2022-05-16] MEDS ORDERED: LEVSOD100 PO (14:27)
--- NOTE | 2022-05-16 18:26 | NUR ---
Echocardiogram completed.
[2022-05-16] MEDS ORDERED: MELATONIN5 M1 PO (18:39)
--- NOTE | 2022-05-16 18:51 | NUR ---
SHIFT SUMMARY: PT A/O X 4 STANDBY ASSIST. PLEASANT AND COOPERATIVE WITH CARE. PT IN ROOM HE ATE DINNER WELL. ADMISSION ASSESSMENT COMPLETED. PT DOES NOT HAVE ANY CONCERNS AT THIS TIME. NO S/S OF DITRESS. WILL REPORT TO ONCOMING RN.
--- NOTE | 2022-05-17 04:17 | NUR ---
SHIFT SUMMARY 81 YR M ADMITTED ON 05/16/22 FOR BACTEREMIA OF UNKNOWN ETIOLOGY. FULL CODE. PT PRESENTED TO ED THIS SHIFT AFTER BEING TOLD TO RETURN DUE TO BLOOD CULTURE RESULTS THAT WERE TAKEN SEVERAL DAYS AGO WHEN PT PRESENTED TO ED W/ DEHYDRATION AND WEAKNESS. THE PLAN ID FOR IV ABX. PT STATES HE IS FEELING BETTER AND IS INDEPENDANT IN ROOM W/ A CANE. HIS HOPE IS TO NOT HAVE TO STAY TOO LONG FOR THE ABX TX.
[2022-05-17 05:54] LABS: BASOPHILS ABSOLUTE AUTO 0.06 K/mm3 (0.00-0.23); BASOPHILS PERCENT AUTO 1 % (0-2); EOSINOPHILS ABSOLUTE AUTO 0.25 K/mm3 (0.00-0.68); EOSINOPHILS PERCENT AUTO 4 % (0-6); Hematocrit 36.1 % (37.0-53.0); Hemoglobin 11.9 g/dL (13.5-17.5); IMMATURE GRAN ABSOLUTE AUTO 0.02 K/mm3 (0.00-0.10); IMMATURE GRAN PERCENT AUTO 0 % (0-1); LYMPHOCYTES ABSOLUTE AUTO 1.25 K/mm3 (0.84-5.20); LYMPHOCYTES PERCENT AUTO 21 % (21-46); MONOCYTES ABSOLUTE AUTO 0.54 K/mm3 (0.16-1.47); MONOCYTES PERCENT AUTO 9 % (4-13); Mean Corpuscular HGB 33.1 pg (26.0-34.0); Mean Corpuscular Volume 100 fL (80-100); Mean Platelet Volume 9.3 fL (9.1-12.4); NEUTROPHILS ABSOLUTE AUTO 3.99 K/mm3 (1.96-9.15); NEUTROPHILS PERCENT AUTO 65 % (41-73); Platelet Count 307 K/mm3 (150-400); RDW Coefficient Variation 13.4 % (11.7-14.2); White Blood Cell Count 6.11 K/mm3 (4.00-11.30)
[2022-05-17 06:21] LABS: Albumin, Blood 3.4 g/dL (3.4-5.0); Albumin/Globulin Ratio 0.8 (0.8-1.8); Bilirubin, Total 0.4 mg/dL (0.1-1.0); Bun/Creatinine Ratio 18.9 (12.0-20.0); Calcium, Blood 9.4 mg/dL (8.5-10.1); Creatinine, Blood 1.22 mg/dL (0.60-1.20); Globulin, Blood 4.4 g/dL (2.2-4.0); Magnesium, Blood 1.8 mg/dL (1.6-2.4); Total Protein, Blood 7.8 g/dL (6.4-8.2)
[2022-05-17 13:27] LABS: Stool Occult Blood Guaiac 1 Neg (Neg)
--- NOTE | 2022-05-17 15:46 | NUR ---
SHIFT SUMMARY- PT A/OX4, INDEP UP IN ROOM WITH CANE. PT DENIES ANY COMPLAINTS T/O THE DAY. LS CLEAR, ON RA. TELE SR AT 72. PT DOWN FOR A NILA THIS AFTERNOON. STOOL GUAIAC NEGATIVE. PT CONTINUEING TO GET ABX AT THIS TIME. NO OTHER ACUTE CHANGES THIS SHIFT.
--- NOTE | 2022-05-17 17:33 | NUR ---
PT BACK FROM HEART CENTER FROM NILA. PT DROWSY BUT AROUSABLE. PT DENIES ANY COMPLAINTS. VSS. TELE SR AT 83.
--- NOTE | 2022-05-18 05:08 | NUR ---
SHIFT SUMMARY 81 YR M ADMITTED ON 05/16/22 FOR BACTEREMIA OF UNKNOWN ETIOLOGY. FULL CODE. NO ACUTE CHANGES THIS SHIFT. PT HAS NO C/O PAIN OR DISWCOMFORT. HE IS INDEPENDANT IN THE ROOM AND USES THE CALL LIGHT APPROPRIATELY.
[2022-05-18] MEDS ORDERED: CEFP200 PO (10:10)
[2022-05-18] MEDS ORDERED: VISBIOME 112.51 EACH PO (10:11)
--- NOTE | 2022-05-18 11:13 | NUR ---
DISCHARGE INSTRUCTIONS REVIEWED WITH PT AND SPOUSE. IV DC'D INTACT. PT DENIES ANY COMPLAINTS. INDEP UP IN ROOM WITH CANE. RX FAXED TO [facility]. PT HAS NO CONERNS AT THIS TIME AND READY TO DISCHARGE HOME. PT DC'D HOME AT 1114 ESCORTED VIA W/C.
== END 2022-05-18 11:20 | disposition home or self-care (01) | DRG 872 ==
LOC: ER 08:12 → MEDS 11:07 → ERHOLD 11:07 → MEDS 15:55
PROVIDERS: Physician Assistant; ADMIT Family Medicine
DX: R78.81 Bacteremia (principal); B96.1 Klebsiella pneumoniae [K. pneumoniae] as the cause of diseases classified elsewhere; E03.9 Hypothyroidism, unspecified; F41.9 Anxiety disorder, unspecified; F32.A Depression, unspecified; G47.00 Insomnia, unspecified; N40.0 Benign prostatic hyperplasia without lower urinary tract symptoms; E11.22 Type 2 diabetes mellitus with diabetic chronic kidney disease; N18.9 Chronic kidney disease, unspecified; I35.8 Other nonrheumatic aortic valve disorders; Z88.0 Allergy status to penicillin; Z88.5 Allergy status to narcotic agent; Z79.82 Long term (current) use of aspirin; Z79.899 Other long term (current) drug therapy; Z95.1 Presence of aortocoronary bypass graft; Z79.84 Long term (current) use of oral hypoglycemic drugs; Z87.442 Personal history of urinary calculi
CPT/HCPCS: 36415; 71045; 80053; 81003; 82270; 82947; 83605; 83735; 84100; 85025; 87040; 93308; 93312; 93325; 96374; 99152; 99153; 99285-25; A9270; J0696; J1650; J2250; J3010; J7030; J7040

== ENCOUNTER 2023-01-13 13:03 | Emergency (ER) | payer MEDICARE, BC ==
[~2023-01-13] VITALS: Ht 182.9 cm; Wt 78.5 kg
[~2023-01-13 13:03] MED LIST changes: +METFORMIN ER G500 MG PO; +PARO20 PO; +VISBIOME 112.51 EACH PO
[2023-01-13 13:51] LABS: BASOPHILS ABSOLUTE AUTO 0.05 K/mm3 (0.00-0.23); BASOPHILS PERCENT AUTO 1 % (0-2); EOSINOPHILS ABSOLUTE AUTO 0.05 K/mm3 (0.00-0.68); EOSINOPHILS PERCENT AUTO 1 % (0-6); Hematocrit 38.8 % (37.0-53.0); Hemoglobin 12.9 g/dL (13.5-17.5); IMMATURE GRAN ABSOLUTE AUTO 0.04 K/mm3 (0.00-0.10); IMMATURE GRAN PERCENT AUTO 1 % (0-1); LYMPHOCYTES ABSOLUTE AUTO 0.93 K/mm3 (0.84-5.20); LYMPHOCYTES PERCENT AUTO 11 % (21-46); MONOCYTES PERCENT AUTO 4 % (4-13); Mean Corpuscular HGB 33.2 pg (26.0-34.0); Mean Corpuscular HGB Conc 33.2 g/dL (31.5-36.5); Mean Corpuscular Volume 100 fL (80-100); Mean Platelet Volume 9.3 fL (9.1-12.4); NEUTROPHILS ABSOLUTE AUTO 6.98 K/mm3 (1.96-9.15); NEUTROPHILS PERCENT AUTO 84 % (41-73); Platelet Count 293 K/mm3 (150-400); RDW Coefficient Variation 13.5 % (11.7-14.2); RDW Standard Deviation 49.4 fL (35.1-46.3); Red Blood Cell Count 3.88 M/mm3 (4.30-5.90); White Blood Cell Count 8.35 K/mm3 (4.00-11.30)
[2023-01-13 14:05] LABS: Albumin, Blood 3.6 g/dL (3.4-5.0); Albumin/Globulin Ratio 0.9 (0.8-1.8); Bilirubin, Total 0.5 mg/dL (0.1-1.0); Globulin, Blood 4.1 g/dL (2.2-4.0); Potassium, Blood 4.3 mmol/L (3.5-5.5); Total Protein, Blood 7.7 g/dL (6.4-8.2)
== END 2023-01-13 16:11 | disposition home or self-care (01) ==
LOC: ER 13:03
PROVIDERS: Emergency Medicine
DX: H81.399 Other peripheral vertigo, unspecified ear (principal); E11.9 Type 2 diabetes mellitus without complications; I10 Essential (primary) hypertension; I25.10 Atherosclerotic heart disease of native coronary artery without angina pectoris; E78.5 Hyperlipidemia, unspecified; N40.0 Benign prostatic hyperplasia without lower urinary tract symptoms; Z88.0 Allergy status to penicillin; Z88.5 Allergy status to narcotic agent; Z79.82 Long term (current) use of aspirin; Z79.899 Other long term (current) drug therapy; Z79.84 Long term (current) use of oral hypoglycemic drugs; Z87.891 Personal history of nicotine dependence; Z95.1 Presence of aortocoronary bypass graft
CPT/HCPCS: 70450; 71045; 80053; 84484; 85025; 93005; 93010; A9270; J2405; J7030

== ENCOUNTER 2023-06-22 15:11 | Emergency (ER) | payer MEDICARE, BC ==
[~2023-06-22] VITALS: Ht 182.9 cm; Wt 77.1 kg
[2023-06-22 15:26] VITALS: BP 166/91
[2023-06-22] MEDS ORDERED: Norco 5-325 Ta1 EACH PO ×2 (16:06→16:19)
[2023-06-22] MEDS ORDERED: CLIN150 PO ×2 (16:06→16:19)
== END 2023-06-22 16:21 | disposition home or self-care (01) ==
LOC: ER 15:11
DX: K04.7 Periapical abscess without sinus (principal); E11.9 Type 2 diabetes mellitus without complications; I10 Essential (primary) hypertension; I25.10 Atherosclerotic heart disease of native coronary artery without angina pectoris; E78.5 Hyperlipidemia, unspecified; N40.0 Benign prostatic hyperplasia without lower urinary tract symptoms; Z88.0 Allergy status to penicillin; Z88.5 Allergy status to narcotic agent; Z79.82 Long term (current) use of aspirin; Z79.899 Other long term (current) drug therapy; Z79.890 Hormone replacement therapy; Z87.891 Personal history of nicotine dependence; Z95.1 Presence of aortocoronary bypass graft
CPT/HCPCS: 99282

== ENCOUNTER 2024-05-30 15:54 | Emergency (ER) | payer MEDICARE, BC ==
[~2024-05-30] VITALS: Ht 182.9 cm; Wt 77.1 kg
[~2024-05-30 15:54] MED LIST changes: +ACET500 PO; +Acerola C500 MG PO; +CHOLESTYRAMI239.4 G5 PO; +CLIN150 PO; +DOXY100 PO; +ESCI20 PO; +FERREX 150150 MG PO; +Norco 5-325 Ta1 EACH PO; +TRAM50 PO; +Vitamin D1000 UNI1 PO
[2024-05-30 16:29] LABS: Source, Urine Clean Catch
[2024-05-30 16:31] LABS: BASOPHILS ABSOLUTE AUTO 0.08 K/mm3 (0.00-0.23); BASOPHILS PERCENT AUTO 1 % (0-2); EOSINOPHILS ABSOLUTE AUTO 0.34 K/mm3 (0.00-0.68); EOSINOPHILS PERCENT AUTO 5 % (0-6); Hematocrit 38.2 % (37.0-53.0); Hemoglobin 12.8 g/dL (13.5-17.5); IMMATURE GRAN ABSOLUTE AUTO 0.01 K/mm3 (0.00-0.10); IMMATURE GRAN PERCENT AUTO 0 % (0-1); LYMPHOCYTES ABSOLUTE AUTO 1.45 K/mm3 (0.84-5.20); LYMPHOCYTES PERCENT AUTO 21 % (21-46); MONOCYTES ABSOLUTE AUTO 0.57 K/mm3 (0.16-1.47); MONOCYTES PERCENT AUTO 8 % (4-13); Mean Corpuscular HGB 34.1 pg (26.0-34.0); Mean Corpuscular HGB Conc 33.5 g/dL (31.5-36.5); Mean Corpuscular Volume 102 fL (80-100); Mean Platelet Volume 9.2 fL (9.1-12.4); NEUTROPHILS ABSOLUTE AUTO 4.36 K/mm3 (1.96-9.15); NEUTROPHILS PERCENT AUTO 64 % (41-73); Platelet Count 239 K/mm3 (150-400); RDW Coefficient Variation 13.1 % (11.7-14.2); RDW Standard Deviation 49.1 fL (35.1-46.3); Red Blood Cell Count 3.75 M/mm3 (4.30-5.90); White Blood Cell Count 6.81 K/mm3 (4.00-11.30)
[2024-05-30 16:32] LABS: Appearance, Urine Hazy (Clear); Bilirubin, Urine Neg (Neg); Blood, Urine 5+ (Neg); Color, Urine Amber (P-Yellow); Glucose Qualitative, Urine Neg (Neg); Ketones, Urine Neg (Neg); Leukocyte Esterase, Urine 1+ (Neg); Nitrite, Urine Neg (Neg); Protein, Urine 2+ (Neg); Urobilinogen, Urine NORM (Normal)
[2024-05-30 16:40] LABS: Bacteria Mod /hpf; Red Blood Cells, Urine 50-100 /hpf (0-2); Squamous Epithelial Cells Rare /hpf (Few)
[2024-05-30 16:51] LABS: Albumin, Blood 3.9 g/dL (3.4-5.0); Bilirubin, Total 0.3 mg/dL (0.1-1.0); Calcium, Blood 8.7 mg/dL (8.5-10.1); Creatinine, Blood 1.3 mg/dL (0.60-1.20); Potassium, Blood 4.8 mmol/L (3.5-5.5); Total Protein, Blood 7.9 g/dL (6.4-8.2)
[2024-05-30] MEDS ORDERED: CARBIDOPA-LEVO1 EA15 PO (16:57)
[2024-05-30] MEDS ORDERED: CefTRIAXone Sodium 1,000 MG in NS 100 ML IV ONE (17:45)
[2024-05-30] MEDS ORDERED: FentaNYL Citrate 50 MCG/ML 2 ML Injection IV ONE ×2 (17:45→19:25)
[2024-05-30] MEDS ORDERED: Ondansetron HCl 2 MG / ML 2ML Vial IV ONE ×2 (17:45→19:25)
[2024-05-30] MEDS ORDERED: HYDROmorphone HCl/Pf 1MG SYR IV ONE (21:35)
[2024-05-30 22:30] VITALS: BP 127/70
[2024-05-30] MEDS ORDERED: NS 1,000 ML IV SCH (22:35)
== END 2024-05-31 00:36 | disposition short-term general hospital (02) ==
LOC: ER 15:54
PROVIDERS: Physician Assistant
DX: N13.2 Hydronephrosis with renal and ureteral calculous obstruction (principal); K57.30 Diverticulosis of large intestine without perforation or abscess without bleeding; N39.0 Urinary tract infection, site not specified; N40.0 Benign prostatic hyperplasia without lower urinary tract symptoms; Z88.0 Allergy status to penicillin; Z88.5 Allergy status to narcotic agent; Z79.899 Other long term (current) drug therapy; Z79.82 Long term (current) use of aspirin; E11.9 Type 2 diabetes mellitus without complications; I10 Essential (primary) hypertension; I25.10 Atherosclerotic heart disease of native coronary artery without angina pectoris; Z87.891 Personal history of nicotine dependence
CPT/HCPCS: 74177; 80053; 81001; 83605; 85025; J0696; J1170; J2405; J3010; J7030; Q9967

== ENCOUNTER → 2024-06-08 | Outpatient (CLI) | payer MEDICARE, BC ==
[~2024-06-08] MED LIST changes: +CARBIDOPA-LEVO1 EA15 PO
== END ==
LOC: LAB 12:25 → LAB SHORT 12:25
DX: R31.9 Hematuria, unspecified (principal)
CPT/HCPCS: 87086

== ENCOUNTER 2024-07-26 00:17 | Emergency (ER) | payer MEDICARE, BC ==
[~2024-07-26] VITALS: Ht 182.9 cm; Wt 73.5 kg
[2024-07-26 00:44] LABS: BASOPHILS ABSOLUTE AUTO 0.05 K/mm3 (0.00-0.23); BASOPHILS PERCENT AUTO 1 % (0-2); EOSINOPHILS PERCENT AUTO 1 % (0-6); Hematocrit 36.5 % (37.0-53.0); Hemoglobin 12.4 g/dL (13.5-17.5); IMMATURE GRAN ABSOLUTE AUTO 0.02 K/mm3 (0.00-0.10); IMMATURE GRAN PERCENT AUTO 0 % (0-1); LYMPHOCYTES ABSOLUTE AUTO 1.65 K/mm3 (0.84-5.20); LYMPHOCYTES PERCENT AUTO 16 % (21-46); MONOCYTES ABSOLUTE AUTO 0.72 K/mm3 (0.16-1.47); MONOCYTES PERCENT AUTO 7 % (4-13); Mean Corpuscular HGB 33.9 pg (26.0-34.0); Mean Corpuscular Volume 100 fL (80-100); Mean Platelet Volume 9.4 fL (9.1-12.4); NEUTROPHILS ABSOLUTE AUTO 7.56 K/mm3 (1.96-9.15); NEUTROPHILS PERCENT AUTO 75 % (41-73); Platelet Count 224 K/mm3 (150-400); RDW Coefficient Variation 13.2 % (11.7-14.2); RDW Standard Deviation 48.5 fL (35.1-46.3); Red Blood Cell Count 3.66 M/mm3 (4.30-5.90)
[2024-07-26] MEDS ORDERED: Morphine Sulfate 4 MG/1 ML Injection IV ONE ×2 (00:55→03:10)
[2024-07-26] MEDS ORDERED: Ondansetron HCl 2 MG / ML 2ML Vial IV ONE (00:55)
[2024-07-26 01:07] LABS: Albumin, Blood 3.6 g/dL (3.4-5.0); Albumin/Globulin Ratio 0.9 (0.8-1.8); Bilirubin, Total 0.8 mg/dL (0.1-1.0); Bun/Creatinine Ratio 20.5 (12.0-20.0); Calcium, Blood 8.8 mg/dL (8.5-10.1); Creatinine, Blood 1.51 mg/dL (0.60-1.20); Globulin, Blood 3.9 g/dL (2.2-4.0); Potassium, Blood 4.2 mmol/L (3.5-5.5); Total Protein, Blood 7.5 g/dL (6.4-8.2)
[2024-07-26 01:48] LABS: Source, Urine Voided
[2024-07-26 02:45] LABS: Appearance, Urine Hazy (Clear); Blood, Urine 5+ (Neg); Color, Urine Brown (P-Yellow); Glucose Qualitative, Urine Neg (Neg); Ketones, Urine Neg (Neg); Leukocyte Esterase, Urine 1+ (Neg); Nitrite, Urine Pos (Neg); Protein, Urine 4+ (Neg); Specific Gravity, Urine 1.015 (1.003-1.022); Urobilinogen, Urine 1+ (Normal)
[2024-07-26 02:50] LABS: Bilirubin, Urine 2+ (Neg)
[2024-07-26 02:53] LABS: Amorphous Light (0-Heavy); Bacteria Many /hpf; Mucus Light (0-Heavy); Red Blood Cells, Urine TNTC /hpf (0-2); Squamous Epithelial Cells Few /hpf (Few); White Blood Cells, Urine 0-2 /hpf (0-5)
[2024-07-26] MEDS ORDERED: CefTRIAXone Sodium 1,000 MG in NS 100 ML IV ONE (03:10)
[2024-07-26] MEDS ORDERED: Morphine Sulfate 10 MG/ML 1MLSYR ONE (03:37)
[2024-07-26 05:00] VITALS: BP 149/81
[2024-07-26] MEDS ORDERED: CEFP200 PO (05:49)
== END 2024-07-26 06:08 | disposition home or self-care (01) ==
LOC: ER 00:17
PROVIDERS: Emergency Medicine
DX: R33.8 Other retention of urine (principal); E11.9 Type 2 diabetes mellitus without complications; I10 Essential (primary) hypertension; I25.10 Atherosclerotic heart disease of native coronary artery without angina pectoris; E78.5 Hyperlipidemia, unspecified; N40.0 Benign prostatic hyperplasia without lower urinary tract symptoms; G20.A1 Parkinson's disease without dyskinesia, without mention of fluctuations; Z90.49 Acquired absence of other specified parts of digestive tract; Z87.442 Personal history of urinary calculi; Z98.890 Other specified postprocedural states; Z88.0 Allergy status to penicillin; Z88.5 Allergy status to narcotic agent; Z79.899 Other long term (current) drug therapy; Z79.82 Long term (current) use of aspirin; Z79.890 Hormone replacement therapy
CPT/HCPCS: 51702; 74177; 80053; 81001; 83690; 85025; 93005; 93010; 96365-59; 96375-59; 96376-59; 99284-25; J0696; J2270; J2405; Q9967

== ENCOUNTER 2024-07-29 12:27 | Emergency (ER) | payer MEDICARE, BC ==
[~2024-07-29] VITALS: Ht 182.9 cm; Wt 74.8 kg
[2024-07-29 12:45] VITALS: BP 123/70
== END 2024-07-29 14:23 | disposition home or self-care (01) ==
LOC: ER 12:27
DX: Z46.6 Encounter for fitting and adjustment of urinary device (principal); I10 Essential (primary) hypertension; E11.9 Type 2 diabetes mellitus without complications; Z87.891 Personal history of nicotine dependence; Z79.82 Long term (current) use of aspirin; Z79.899 Other long term (current) drug therapy; Z88.0 Allergy status to penicillin; Z88.5 Allergy status to narcotic agent
CPT/HCPCS: 99282

== ENCOUNTER 2024-07-29 21:04 | Emergency (ER) | payer MEDICARE, BC ==
[~2024-07-29] VITALS: Ht 182.9 cm; Wt 74.8 kg
[2024-07-29 23:33] LABS: Source, Urine Foley catheter
[2024-07-29 23:36] LABS: Bilirubin, Urine Neg (Neg); Blood, Urine 5+ (Neg); Glucose Qualitative, Urine Neg (Neg); Ketones, Urine Neg (Neg); Leukocyte Esterase, Urine 1+ (Neg); Nitrite, Urine Pos (Neg); Protein, Urine 2+ (Neg); Specific Gravity, Urine 1.015 (1.003-1.022); Urobilinogen, Urine NORM (Normal)
[2024-07-29 23:53] LABS: Appearance, Urine Clear (Clear); Color, Urine Yellow (P-Yellow)
[2024-07-29 23:54] LABS: Bacteria Mod /hpf; Red Blood Cells, Urine 25-50 /hpf (0-2); Squamous Epithelial Cells Few /hpf (Few); White Blood Cells, Urine 0-2 /hpf (0-5)
[2024-07-30] MEDS ORDERED: Cephalexin Monohydrate 500 MG Cap PO ONE (00:10)
[2024-07-30 00:30] VITALS: BP 121/79
== END 2024-07-30 00:54 | disposition home or self-care (01) ==
LOC: ER 21:04
PROVIDERS: Emergency Medicine
DX: T83.511A Infection and inflammatory reaction due to indwelling urethral catheter, initial encounter (principal); I10 Essential (primary) hypertension; E11.9 Type 2 diabetes mellitus without complications; Z87.891 Personal history of nicotine dependence; Z79.82 Long term (current) use of aspirin; Z79.899 Other long term (current) drug therapy; Z88.0 Allergy status to penicillin; Z88.5 Allergy status to narcotic agent
CPT/HCPCS: 51702; 51798; 81001; 87086; 99283-25; A9270

== ENCOUNTER → 2025-01-08 | Outpatient (CLI) | payer MEDICARE, BC ==
[2025-01-08 19:29] LABS: Microalb/Creat Ratio UR, Rand 26.601 mg/g (0.000-30.000); Microalbumin, Random Urine 40.7 mg/L (0.000-20.000)
== END ==
LOC: LAB SHORT 13:08 → LAB 13:08
PROVIDERS: Family Medicine
DX: R39.9 Unspecified symptoms and signs involving the genitourinary system (principal)
CPT/HCPCS: 82043; 82570; 87077; 87086; 87186

== ENCOUNTER 2025-07-19 13:41 | Emergency (ER) | payer OTHER ==
[~2025-07-19] VITALS: Ht 182.9 cm; Wt 74.8 kg
[2025-07-19] MEDS ORDERED: Lidocaine 4% 1 Patch TOP ONE (14:20)
[2025-07-19] MEDS ORDERED: CYCL10 PO (15:24)
[2025-07-19] MEDS ORDERED: LIDOCAINE1 EAC1 TOP (15:24)
[2025-07-19 15:30] VITALS: BP 169/73
== END 2025-07-19 15:47 | disposition home or self-care (01) ==
LOC: ER 13:41
DX: S13.4XXA Sprain of ligaments of cervical spine, initial encounter (principal); E11.9 Type 2 diabetes mellitus without complications; I10 Essential (primary) hypertension; I25.10 Atherosclerotic heart disease of native coronary artery without angina pectoris; G20.A1 Parkinson's disease without dyskinesia, without mention of fluctuations; E78.5 Hyperlipidemia, unspecified; Z95.1 Presence of aortocoronary bypass graft; Z95.0 Presence of cardiac pacemaker; Z87.891 Personal history of nicotine dependence; Z88.0 Allergy status to penicillin; Z88.5 Allergy status to narcotic agent; Z79.82 Long term (current) use of aspirin; Z79.890 Hormone replacement therapy; Z79.899 Other long term (current) drug therapy; V89.2XXA Person injured in unspecified motor-vehicle accident, traffic, initial encounter
CPT/HCPCS: 70450; 72125; 99284-25; A9270